=== PATIENT | male | born 1955 | race Caucasian/White ===

== ENCOUNTER 2016-08-27 17:31 | Observation (INO) ==
--- NOTE | 2016-08-27 18:08 | Emergency Department Note ---
Disposition Clinical Impression: Unstable angina pectoris Chest pain Qualifiers: Chest pain type: unspecified Qualified Code(s): R07.9 - Chest pain, unspecified Disposition: Still a Patient Condition: Fair Referrals: Feliciano Laguna CNP [Primary Care Provider] - Forms: ED Satisfaction Letter Time of Disposition: 19:10 Chest Pain HPI - General Chief Complaint: ED Chest Pain Stated Complaint: Chest pain Time Seen by Provider: 08/27/16 17:43 Source: patient Limitations: no limitations Vital Signs Reviewed: Yes Nursing Notes Reviewed: Yes - History of Present Illness HPI Narrative: Patient is a 61-year-old male who presents to [facility] ED with a chief complaint of chest pain. States it has been going on intermittently since 4 days ago. States he just usually takes a few nitroglycerin which relieved his chest pain. Then he feels very weak the next day. The chest pain is located centrally, sharp, radiating to the right arm and left jaw. Patient initially presented to [facility] who sent him here to be evaluated for his chest pain, generalized weakness. They placed 1 inch of Nitropaste, DuoNeb treatment, full dose aspirin, peripheral IV. Patient's last heart catheterization was many years ago. He last had a heart stress test approximately one year ago. Past medical history significant for severe hyperlipidemia with triglycerides over 1000, atrial fibrillation on Coumadin, hypertension, borderline diabetic. Patient states that had he not run out of nitroglycerin, he probably would not have gone to be seen by the doctor. Pt complaint: chest pain Onset (ago): minute(s) Duration: intermittent Onset: during exertion Pain Location: substernal Severity scale (1-10): 0 Quality: sharp Pain Radiation: RUE, jaw/teeth Improves with: nitroglycerin Worsens with: exertion Context: history of DVT/PE Associated symptoms: Denies: nausea, vomiting, diaphoresis, dyspnea, fever, cough Treatments prior to arrival chest pain: aspirin, nitroglycerin, oxygen - Related Data Allergies Allergy/AdvReac Type Severity Reaction Status Date / Time No Known Allergies Allergy Unverified 07/23/16 00:24 All systems ED: reviewed and negative except as stated. Chest Pain PMH - Past Medical History Medical history: Reports: atrial fibrillation, COPD, diabetes, hyperlipidemia, hypertension - Social History Smoking Status: Former smoker Alcohol use: Reports: none Drug use: Reports: none Physical Exam - General Limitations: no limitations General appearance: alert, in no apparent distress - Head Head exam: atraumatic, normocephalic, normal inspection - Eye Eye exam: Present: normal appearance, PERRL, EOMI - ENT ENT exam: normal exam, normal oropharynx, mucous membranes moist - Neck Neck exam: Present: normal inspection, full ROM, trachea midline - Chest Chest inspection: Present: normal inspection, symmetric chest wall rise - Respiratory Respiratory exam: Present: normal lung sounds bilaterally - Cardiovascular Cardiovascular exam: Present: regular rate, normal rhythm, normal heart sounds - Abdominal Exam Abdominal exam: Present: soft, Non-Tender. Absent: tenderness, distention, guarding, rebound, rigidity - Extremities Exam Extremities exam: Present: normal inspection, full ROM. Absent: tenderness, pedal edema - Back Exam Back exam: Present: normal inspection, full ROM. Absent: tenderness - Neurological Exam Neurological exam: Present: alert, oriented X3 - Psychiatric Psychiatric exam: Present: normal affect, normal mood - Skin Skin exam: Present: warm, dry, intact, normal color Course Course Narrative: Patient seen and examined. Chest pain with multiple risk factors. Cardiopulmonary workup initiated. Will likely be admitting to the hospitalist. Patient will likely need a catheterization. - Reevaluation(s) Reevaluation #1: Still awaiting a troponin. Patient signed out to oncoming resident Dr. Elkins. Please see her note for further documentation. Patient will need admission for cardiac workup. Time: 19:10 Vital Signs Temperature 97.7 F 08/27/16 17:32 Pulse Rate 72 08/27/16 17:32 Respiratory Rate 18 08/27/16 17:32 Blood Pressure 126/66 08/27/16 17:32 O2 Sat by Pulse Oximetry 94 L 08/27/16 17:32 Temperature 97.7 F 08/27/16 17:32 Pulse Rate 69 08/27/16 18:34 Respiratory Rate 18 08/27/16 18:34 Blood Pressure 126/71 08/27/16 18:34 O2 Sat by Pulse Oximetry 97 08/27/16 18:34 Oxygen Delivery Oxygen Delivery Nasal Cannula Chest Pain - Medical Records Medical records reviewed: Yes I reviewed the patient's medical records. - Lab Data Lab results reviewed: Yes I reviewed the patient's lab results. Result diagrams: 08/27/16 18:37 08/27/16 18:37 Lab Results 08/27/16 08/27/16 08/27/16 Range/Units 18:37 18:37 18:37 WBC 4.1 L (4.3-11.1) K/mcL RBC 3.49 L (4.19-5.50) M/mcL Hgb 10.5 L (12.9-16.9) g/dL Hct 31.6 L (37.5-50.1) % MCV 90.5 (83.0-100.0) fL MCH 30.1 (28.0-33.3) pg MCHC 33.2 (31.6-35.5) g/dL RDW 13.3 (11.5-14.5) % Plt Count 199 (140-400) K/mcL MPV 9.2 L (9.4-12.4) fL Immature Gran % 3.9 (0-4) % Seg Neutrophils % 59.5 % Lymphocytes % 20.0 % Monocytes % 14.6 % Eosinophils % 1.5 % Basophils % 0.5 % Neutrophils # 2.5 (1.6-8.9) K/mcL Lymphocytes # 0.8 (0.6-4.6) K/mcL Monocytes # 0.6 (0.0-1.3) K/mcL Eosinophils # 0.1 (0.0-0.6) K/mcL Basophils # 0.0 (0.0-0.2) K/mcL PT 29.9 H (9.4-12.1) Seconds INR 2.7 APTT 43.3 H (26.0-36.0) Seconds Sodium 138 (136-145) mEq/L Potassium 3.7 (3.5-4.5) mEq/L Chloride 100 (98-109) mEq/L Carbon Dioxide 28 (19-29) mEq/L BUN 14 (8-26) mg/dL Creatinine 1.23 (0.72-1.25) mg/dL Est GFR ( Amer) > 60 (> 60) Est GFR (Non-Af Amer) 60 (> 60) BUN/Creatinine Ratio 11 (6-26) Glucose 248 H (70-99) mg/dL Calculated Osmolality 295 (280-300) Calcium 8.8 (8.6-10.8) mg/dL - Radiology Data Radiology results reviewed: Yes I reviewed the patient's radiology results. - EKG Data EKG attestation: Yes I reviewed and interpreted this EKG. EKG results narrative: EKG done at 1735 shows an electronic ventricular pacemaker paced rhythm with a rate of [address] elevation or depression. Left axis deviation. Findings unchanged from prior EKG done 04/27/2012 Heart Score - Score History: Highly Suspicious EKG: Non Specific repolarisation Disturbance Age: 45-65 Risk Factors: Equal/Greater than 3 risk factor or history of atherosclerotic disease
--- NOTE | 2016-08-27 18:09 | Emergency Department Note ---
Disposition Clinical Impression: Chest pain, Unstable angina pectoris Disposition: Admitted As Inpatient Condition: Good General Adult HPI - General Chief complaint: ED Chest Pain Stated complaint: Chest pain Time Seen by Provider: 08/27/16 17:43 Source: patient Limitations: no limitations - History of Present Illness Pain Scale: 0 - Related Data Home Medications Medication Instructions Recorded Confirmed Albuterol Sulfate [Ventolin Hfa] 2 puff IH Q4H PRN 08/27/16 08/27/16 Diazepam [Valium] 10 mg PO TID PRN 08/27/16 08/27/16 Divalproex (12 HR) [Depakote (12 1,000 mg PO BID 08/27/16 08/27/16 HR)] Fenofibrate 160 mg PO DAILY 08/27/16 08/27/16 Lisinopril [Zestril] 20 mg PO DAILY 08/27/16 08/27/16 Metoprolol Tartrate 50 mg PO BID 08/27/16 08/27/16 Naltrexone HCl [Revia] 50 mg PO HS 08/27/16 08/27/16 Quetiapine Fumarate 50 mg PO BID 08/27/16 08/28/16 Rosuvastatin Calcium 10 mg PO DAILY 08/27/16 08/27/16 Tamsulosin [Flomax] 0.4 mg PO DAILY 08/27/16 08/27/16 Warfarin Sodium 2.5 - 5 mg PO AD 08/27/16 08/27/16 Quetiapine Fumarate [Seroquel] 800 mg PO HS 08/28/16 08/28/16 Previous Rx's Medication Instructions Recorded Aspirin Enteric Coated [Aspirin EC] 81 mg PO DAILY #30 tablet. 08/29/16 Cefdinir [Omnicef] 300 mg PO BID #24 capsule 08/29/16 Doxycycline Hyclate 100 mg PO BID #24 tablet 08/29/16 Isosorbide MONOnitrate (24 HR) 30 mg PO DAILY #30 tab.er.24h 08/29/16 [Imdur] PredniSONE 10 mg PO DAILY 8 Days 08/29/16 Allergies Allergy/AdvReac Type Severity Reaction Status Date / Time No Known Allergies Allergy Verified 08/27/16 20:43 Past Medical History - Past Medical History Medical history: Reports: atrial fibrillation, COPD, diabetes, hyperlipidemia, hypertension - Social History Smoking Status: Former smoker Alcohol use: Reports: none Drug use: Reports: none Physical Exam - General Limitations: no limitations General appearance: alert, in no apparent distress Course - Reevaluation(s) Reevaluation #1: I saw the patient with the resident, Dr. Liu. Patient presents with a complaint of chest pain. He has been having episodes over the past 2-3 months. He describes central chest discomfort that radiates up into the jaws bilaterally and also feels it in the arms and hands bilaterally. It is associated with shortness of breath and diaphoresis. He takes nitroglycerin to make it go away. He does not note any exacerbating factors but definitely feels that nitroglycerin makes it get better. According to family he is out for at least a day after having chest pain episodes. That story is very concerning to me for cardiac ischemia. He has a tremendous number of risk factors. I think you need to be admitted because I think he needs a heart catheterization. We will get the labs back and make that happen. He is pain- free at this time. Time: 18:08 Vital Signs Temperature 97.7 F 08/27/16 17:32 Pulse Rate 72 08/27/16 17:32 Respiratory Rate 18 08/27/16 17:32 Blood Pressure 126/66 08/27/16 17:32 O2 Sat by Pulse Oximetry 94 L 08/27/16 17:32 Temperature 98.5 F 08/29/16 11:21 Pulse Rate 72 08/29/16 11:21 Respiratory Rate 16 08/29/16 13:30 Blood Pressure 158/66 08/29/16 12:07 O2 Sat by Pulse Oximetry 95 08/29/16 13:30 Oxygen Delivery Oxygen Delivery Nasal Cannula Medical Decision Making - Lab Data Result diagrams: 08/29/16 08:10 08/28/16 00:51 Lab Results 08/27/16 08/27/16 08/27/16 Range/Units 18:37 18:37 18:37 WBC 4.1 L (4.3-11.1) K/mcL RBC 3.49 L (4.19-5.50) M/mcL Hgb 10.5 L (12.9-16.9) g/dL Hct 31.6 L (37.5-50.1) % MCV 90.5 (83.0-100.0) fL MCH 30.1 (28.0-33.3) pg MCHC 33.2 (31.6-35.5) g/dL RDW 13.3 (11.5-14.5) % Plt Count 199 (140-400) K/mcL MPV 9.2 L (9.4-12.4) fL Immature Gran % 3.9 (0-4) % Seg Neutrophils % 59.5 % Lymphocytes % 20.0 % Monocytes % 14.6 % Eosinophils % 1.5 % Basophils % 0.5 % Neutrophils # 2.5 (1.6-8.9) K/mcL Lymphocytes # 0.8 (0.6-4.6) K/mcL Monocytes # 0.6 (0.0-1.3) K/mcL Eosinophils # 0.1 (0.0-0.6) K/mcL Basophils # 0.0 (0.0-0.2) K/mcL PT 29.9 H (9.4-12.1) Seconds INR 2.7 APTT 43.3 H (26.0-36.0) Seconds Sodium 138 (136-145) mEq/L Potassium 3.7 (3.5-4.5) mEq/L Chloride 100 (98-109) mEq/L Carbon Dioxide 28 (19-29) mEq/L BUN 14 (8-26) mg/dL Creatinine 1.23 (0.72-1.25) mg/dL Est GFR ( Amer) > 60 (> 60) Est GFR (Non-Af Amer) 60 (> 60) BUN/Creatinine Ratio 11 (6-26) Glucose 248 H (70-99) mg/dL Calculated Osmolality 295 (280-300) Calcium 8.8 (8.6-10.8) mg/dL Troponin I (0-0.03) ng/mL 08/27/16 Range/Units 18:37 WBC (4.3-11.1) K/mcL RBC (4.19-5.50) M/mcL Hgb (12.9-16.9) g/dL Hct (37.5-50.1) % MCV (83.0-100.0) fL MCH (28.0-33.3) pg MCHC (31.6-35.5) g/dL RDW (11.5-14.5) % Plt Count (140-400) K/mcL MPV (9.4-12.4) fL Immature Gran % (0-4) % Seg Neutrophils % % Lymphocytes % % Monocytes % % Eosinophils % % Basophils % % Neutrophils # (1.6-8.9) K/mcL Lymphocytes # (0.6-4.6) K/mcL Monocytes # (0.0-1.3) K/mcL Eosinophils # (0.0-0.6) K/mcL Basophils # (0.0-0.2) K/mcL PT (9.4-12.1) Seconds INR APTT (26.0-36.0) Seconds Sodium (136-145) mEq/L Potassium (3.5-4.5) mEq/L Chloride (98-109) mEq/L Carbon Dioxide (19-29) mEq/L BUN (8-26) mg/dL Creatinine (0.72-1.25) mg/dL Est GFR ( Amer) (> 60) Est GFR (Non-Af Amer) (> 60) BUN/Creatinine Ratio (6-26) Glucose (70-99) mg/dL Calculated Osmolality (280-300) Calcium (8.6-10.8) mg/dL Troponin I 0.02 (0-0.03) ng/mL Attestation Statement - Attestation Attestation: I, Dr. Jiang, examined this patient [id number] and my medical decision- making was reviewed with Dr. Liu, Resident Physician. I agree with the documented findings, disposition and treatment plan as described except to the extent set forth below. Please see my progress notes for details.
[2016-08-27 18:43] LABS: Basophils % 0.5 %; Eosinophils # 0.1 K/mcL (0.0-0.6); Eosinophils % 1.5 %; Hematocrit 31.6 % (37.5-50.1); Hemoglobin 10.5 g/dL (12.9-16.9); Immature Granulocytes % 3.9 % (0-4); Lymphocytes # 0.8 K/mcL (0.6-4.6); Mean Corpuscular HGB Conc 33.2 g/dL (31.6-35.5); Mean Corpuscular Hemoglobin 30.1 pg (28.0-33.3); Mean Corpuscular Volume 90.5 fL (83.0-100.0); Mean Platelet Volume 9.2 fL (9.4-12.4); Monocytes # 0.6 K/mcL (0.0-1.3); Monocytes % 14.6 %; Neutrophils # 2.5 K/mcL (1.6-8.9); Platelet Count 199 K/mcL (140-400); Red Blood Count 3.49 M/mcL (4.19-5.50); Red Cell Distribution Width 13.3 % (11.5-14.5); Segmented Neutrophils % 59.5 %
[2016-08-27 18:51] LABS: INR 2.7; Prothrombin Time 29.9 Seconds (9.4-12.1)
[2016-08-27 18:53] LABS: Activated Partial Thrombo Time 43.3 Seconds (26.0-36.0)
[2016-08-27 18:55] LABS: BUN/Creatinine Ratio 11 (6-26); Blood Urea Nitrogen 14 mg/dL (8-26); Calcium 8.8 mg/dL (8.6-10.8); Carbon Dioxide 28 mEq/L (19-29); Chloride 100 mEq/L (98-109); Glucose 248 mg/dL (70-99); Osmolality,Calculated 295 (280-300); Potassium 3.7 mEq/L (3.5-4.5); Sodium 138 mEq/L (136-145); eGFR For African Americans > 60 (> 60); eGFR For Non-African Americans 60 (> 60)
[2016-08-27] MEDS ORDERED: Insulin Regular, Human 100 UNIT/ML SQ ONE (20:01)
--- NOTE | 2016-08-27 20:05 | Emergency Department Note ---
Disposition Clinical Impression: Unstable angina pectoris Chest pain Qualifiers: Chest pain type: unspecified Qualified Code(s): R07.9 - Chest pain, unspecified Disposition: Admitted As Inpatient Condition: Fair Referrals: Feliciano Laguna [employer] [Primary Care Provider] - Forms: ED Satisfaction Letter Time of Disposition: 19:45 Chest Pain HPI - General Chief Complaint: ED Chest Pain Stated Complaint: Chest pain Time Seen by Provider: 08/27/16 17:43 Source: patient Limitations: no limitations Vital Signs Reviewed: Yes Nursing Notes Reviewed: Yes - History of Present Illness Pain Location: substernal Severity scale (1-10): 0 Quality: sharp Improves with: nitroglycerin Worsens with: exertion Context: history of DVT/PE Associated symptoms: Denies: nausea, vomiting, diaphoresis, dyspnea, fever, cough - Related Data Allergies Allergy/AdvReac Type Severity Reaction Status Date / Time No Known Allergies Allergy Unverified 07/23/16 00:24 Chest Pain PMH - Past Medical History Medical history: Reports: atrial fibrillation, COPD, diabetes, hyperlipidemia, hypertension - Social History Smoking Status: Former smoker Alcohol use: Reports: none Drug use: Reports: none Physical Exam - General Limitations: no limitations General appearance: alert, in no apparent distress Course Course Narrative: This patient was signed out at shift change from Dr. Liu and Dr. Jiang. Please refer to their notes for complete details of the history and physical examination. At shift change the patient is just awaiting results of troponin level and consultation for admission. 61-year-old male presented with history of increasing chest pains relieved with nitroglycerin. Chest pain is getting more frequent and more severe in intensity. Troponin came back normal at 0.02. Test results and plan discussed with patient and son. I discussed with the hospitalist, Dr. Livingston, and she accepted admission of the patient. - Consultations Consultation #1: Discussed with the hospitalist, Dr. Livingston, and she accepted patient for admission. She requested that I give patient some insulin for his elevated blood glucose. He is given 4 units of regular insulin subcutaneous. Time: 19:45 Vital Signs Temperature 97.7 F 08/27/16 17:32 Pulse Rate 72 08/27/16 17:32 Respiratory Rate 18 08/27/16 17:32 Blood Pressure 126/66 08/27/16 17:32 O2 Sat by Pulse Oximetry 94 L 08/27/16 17:32 Temperature 97.7 F 08/27/16 17:32 Pulse Rate 70 08/27/16 19:14 Respiratory Rate 18 08/27/16 19:14 Blood Pressure 129/73 08/27/16 19:14 O2 Sat by Pulse Oximetry 96 08/27/16 19:14 Oxygen Delivery Oxygen Delivery Nasal Cannula Chest Pain - Lab Data Result diagrams: 08/27/16 18:37 08/27/16 18:37 Lab Results 08/27/16 08/27/16 08/27/16 Range/Units 18:37 18:37 18:37 WBC 4.1 L (4.3-11.1) K/mcL RBC 3.49 L (4.19-5.50) M/mcL Hgb 10.5 L (12.9-16.9) g/dL Hct 31.6 L (37.5-50.1) % MCV 90.5 (83.0-100.0) fL MCH 30.1 (28.0-33.3) pg MCHC 33.2 (31.6-35.5) g/dL RDW 13.3 (11.5-14.5) % Plt Count 199 (140-400) K/mcL MPV 9.2 L (9.4-12.4) fL Immature Gran % 3.9 (0-4) % Seg Neutrophils % 59.5 % Lymphocytes % 20.0 % Monocytes % 14.6 % Eosinophils % 1.5 % Basophils % 0.5 % Neutrophils # 2.5 (1.6-8.9) K/mcL Lymphocytes # 0.8 (0.6-4.6) K/mcL Monocytes # 0.6 (0.0-1.3) K/mcL Eosinophils # 0.1 (0.0-0.6) K/mcL Basophils # 0.0 (0.0-0.2) K/mcL PT 29.9 H (9.4-12.1) Seconds INR 2.7 APTT 43.3 H (26.0-36.0) Seconds Sodium 138 (136-145) mEq/L Potassium 3.7 (3.5-4.5) mEq/L Chloride 100 (98-109) mEq/L Carbon Dioxide 28 (19-29) mEq/L BUN 14 (8-26) mg/dL Creatinine 1.23 (0.72-1.25) mg/dL Est GFR ( Amer) > 60 (> 60) Est GFR (Non-Af Amer) 60 (> 60) BUN/Creatinine Ratio 11 (6-26) Glucose 248 H (70-99) mg/dL Calculated Osmolality 295 (280-300) Calcium 8.8 (8.6-10.8) mg/dL Troponin I (0-0.03) ng/mL 08/27/16 Range/Units 18:37 WBC (4.3-11.1) K/mcL RBC (4.19-5.50) M/mcL Hgb (12.9-16.9) g/dL Hct (37.5-50.1) % MCV (83.0-100.0) fL MCH (28.0-33.3) pg MCHC (31.6-35.5) g/dL RDW (11.5-14.5) % Plt Count (140-400) K/mcL MPV (9.4-12.4) fL Immature Gran % (0-4) % Seg Neutrophils % % Lymphocytes % % Monocytes % % Eosinophils % % Basophils % % Neutrophils # (1.6-8.9) K/mcL Lymphocytes # (0.6-4.6) K/mcL Monocytes # (0.0-1.3) K/mcL Eosinophils # (0.0-0.6) K/mcL Basophils # (0.0-0.2) K/mcL PT (9.4-12.1) Seconds INR APTT (26.0-36.0) Seconds Sodium (136-145) mEq/L Potassium (3.5-4.5) mEq/L Chloride (98-109) mEq/L Carbon Dioxide (19-29) mEq/L BUN (8-26) mg/dL Creatinine (0.72-1.25) mg/dL Est GFR ( Amer) (> 60) Est GFR (Non-Af Amer) (> 60) BUN/Creatinine Ratio (6-26) Glucose (70-99) mg/dL Calculated Osmolality (280-300) Calcium (8.6-10.8) mg/dL Troponin I 0.02 (0-0.03) ng/mL
[2016-08-27] MEDS ORDERED: Naloxone 0.4 MG/ML INJ IVP PRN (20:53)
[2016-08-27] MEDS ORDERED: Ondansetron ODT 4 MG TAB.RAPDIS SL PRN (20:56)
[2016-08-27] MEDS ORDERED: *HR* Morphine 2 MG/ML SYRINGE IVP PRN (20:56)
--- NOTE | 2016-08-27 20:59 | Internal Med History&Physical ---
<Chan Wood - Last Filed: 08/27/16 21:40> Date of Encounter: 08/27/16 Time of Encounter: 20:25 Assessment and Plan (1) Chest pain Current visit: Yes Status: Acute Worsening atypical chest pain; midsternal, no precipitating factors, relieved with nitro. Concern for ACS vs CHF exacerbation vs COPD exacerbation. CXR showed asymmetric pulmonary edema/pneumonia. No acute EKG changes. Troponin neg x 1, will trend. Continue prn nitro. Continue statin, BB. Given ASA. Echo pending. Requested outside cardiology records. Consider consult to cardiology pending results. Qualifiers: Chest pain type: unspecified Qualified Code(s): R07.9 - Chest pain, unspecified (2) CHF (congestive heart failure) Current visit: Yes Status: Suspected Concern for CHF vs COPD exacerbation. Appears "puffy" on exam, with taunt skin of abdomen and lower extremities. Dyspneic with rhonchi. Requesting cardiac history from [facility]. Patient states he has taken lasix at times. Notes hospitalization on ventilator approx 2 years ago which he believes was associated with CHF. CXR showed L perihilar disease with asymmetric pulmonary edema. Ordered echo and stress. Give lasix, with regard to blood pressure. Qualifiers: Congestive heart failure type: unspecified congestive heart failure type Congestive heart failure chronicity: acute on chronic Qualified Code(s): I50.9 - Heart failure, unspecified (3) COPD (chronic obstructive pulmonary disease) Current visit: Yes Status: Chronic Concern for COPD exacerbation vs CHF exacerbation with shortness of breath. Continue duonebs Q4H prn. Supplemental oxygen as needed. No antibiotics recommended at this time. Afebrile, no leukocytosis. Qualifiers: COPD type: unspecified COPD Qualified Code(s): J44.9 - Chronic obstructive pulmonary disease, unspecified (4) A-fib Current visit: Yes Status: Chronic Ventricular paced in the 70s. Continue BB. Continue warfarin. Qualifiers: Atrial fibrillation type: chronic Qualified Code(s): I48.2 - Chronic atrial fibrillation (5) Diabetes mellitus Current visit: Yes Status: Chronic Patient received 4 units insulin in ED for BG 248. Currently NPO for possible cardiac procedures/testing. Check glucose Q6, with medium intensity SSI. Qualifiers: Diabetes mellitus type: type 2 Diabetes mellitus complication status: without complication Diabetes mellitus roasterman insulin use: without chcf use Qualified Code(s): E11.9 - Type 2 diabetes mellitus without complications (6) History of cardiac pacemaker Current visit: Yes Status: Chronic Consulta SURGICAL SCHEDULER pacemaker. (7) Mood disorder Current visit: Yes Status: Chronic History of mood disorder. Continue valium, seroquel, depakote. Checking valproic acid level. (8) DVT prophylaxis Current visit: Yes Status: Acute Continue home warfarin. Internal Medicine - H&P: HPI Chief complaint: chest pain Admitted From: Emergency Dept Plans for Post Hospital Care: Home History of present illness: Mr. Magaña is a 61 year old male that presented to the ED for worsening Chest pain and shortness of breath today. Patient states episodes of chest pain for the past year that originally occurred approx once every other month and have gotten more frequent, more painful, and requiring more nitroglycerin since. Currently occurring approx 2-3x per month and requiring 3-5 nitros before chest pain fully relieved. Patient states his pain today woke him at approx 7am, described as a sharp stabbing pain in the center of his chest with radiation to his R jaw and some tingling in his R hand and foot. Patient states he only had 3 nitros left at home, he used these with temporary improvement and came to the ED when he didn't have any more nitros to take. Patient also notes increased cough and chest congestion for the past 2 days. He also notes falling on Wednesday after having chest pain earlier and taking his night time meds. Patient denies loss of consciousness, denies any nasuea, vomiting, abdominal pain, diarrhea, constipation, dysuria, blood in urine or stool. Notes some mild swelling at times, not currently. Pertinent PMHx of HLD, HTN, COPD, a fib, DM, pulm HTN. Pacer replaced 09/07/[address] Andrew Arriaza (patient has info card on pacer). Patient had seen Dr. Cochran at [facility], new solar energy specialist Dr. Arriaza. Will request records. Past Med Surg Social Fam HX - Past Medical History Medical history: atrial fibrillation, COPD, diabetes, hyperlipidemia, hypertension - Past Surgical History Surgical History: other (pacemaker) - Social History Smoking Status: Former smoker Alcohol use: none Drug use: none - Family History Brother Living Status: Hx Family Cardiac Disorders: Yes (CO) Father Living Status: Hx Family Cancer: Yes (bladder) Mother Living Status: Hx Family Cardiac Disorders: Yes (CO) Hx Family Endocrine Disorder: Yes (DM) Internal Medicine - H&P: Meds Albuterol Sulfate [Ventolin Hfa] 2 puff IH Q4H PRN 08/27/16 [History] Diazepam [Valium] 10 mg PO TID PRN 08/27/16 [History] Divalproex (12 HR) [Depakote (12 HR)] 1,000 mg PO BID 08/27/16 [History] Fenofibrate [Fenofibrate] 160 mg PO DAILY 08/27/16 [History] Lisinopril [Zestril] 20 mg PO DAILY 08/27/16 [History] Metoprolol Tartrate [Metoprolol Tartrate] 50 mg PO BID 08/27/16 [History] Naltrexone HCl [Revia] 50 mg PO HS 08/27/16 [History] Quetiapine Fumarate [Quetiapine Fumarate] 450 mg PO BID 08/27/16 [History] Rosuvastatin Calcium [Rosuvastatin Calcium] 10 mg PO DAILY 08/27/16 [History] Tamsulosin [Flomax] 0.4 mg PO DAILY 08/27/16 [History] Warfarin Sodium [Warfarin Sodium] 2.5 - 5 mg PO AD 08/27/16 [History] Allergies No Known Allergies Allergy (Verified 08/27/16 20:43) All Systems PM: A 10-system review of systems was performed and is negative for pertinent findings except as documented above in the HPI. - Constitutional Constitutional: no chills, no fever(s), no night sweats - EENT Eyes: no change in vision, no pain, no photophobia Ears: no tinnitus Nose, mouth and throat: nasal congestion, no dysphagia - Cardiovascular Cardiovascular ROS IM: chest pain, dyspnea, lightheadedness, no syncope - Respiratory Respiratory: cough, dyspnea, chest congestion - Gastrointestinal Gastrointestinal: no abdominal pain, no diarrhea, no hematemesis, no hematochezia, no melena, no nausea, no vomiting - Genitourinary Genitourinary ROS male: no dysuria, no hematuria - Musculoskeletal Musculoskeletal ROS IM: no tingling - Integumentary Integumentary IM: no rash, no unusual bruising - Neurological Neurological ROS: no confusion, no focal weakness - Hematologic/Lymphatic Hematologic/Lymphatic: no easy bruising - Constitutional Vitals: Temp Pulse Resp BP Pulse Ox 97.7 F 70 20 149/80 96 08/27/16 17:32 08/27/16 19:14 08/27/16 20:41 08/27/16 20:41 08/27/16 19:14 General appearance: Present: cooperative, A&O X 3, no acute distress, answers questions appropriately - Head Head exam: Present: atraumatic, normocephalic - Eye Eye exam: Present: EOMI, PERRL, conjuntiva pink, sclera anicteric Pupils: Present: PERRL - Neck Neck exam general surgery: Present: full ROM, supple, trachea midline - Respiratory Respiratory exam: Present: decreased breath sounds, rhonchi. Absent: accessory muscle use, chest wall tenderness, rales, respiratory distress - Cardiovascular Cardiovascular exam: Present: RRR, +S1, +S2. Absent: diastolic murmur, gallop, rubs, systolic murmur - GI/Abdominal GI/Abdominal exam: Present: distended, normal bowel sounds, soft, no peritoneal signs. Absent: tenderness - Extremities Exam Extremities exam: Present: warm. Absent: calf tenderness, cyanotic, pedal edema (no pitting edema, but skin taunt.) - Neurological Exam Neurological exam: Present: alert, oriented X3, no focal deficits. Absent: facial droop, speech deficit - Skin Skin exam: Present: dry, intact Internal Med - H&P Results - Labs CBC & Chem 7: 08/27/16 18:37 08/27/16 18:37 <Kenzie Livingston - Last Filed: 08/27/16 23:01> Date of Encounter: 08/27/16 Internal Medicine - H&P: HPI History of present illness: Mr. Magaña is a 61 year old male All Systems PM: A 10-system review of systems was performed and is negative for pertinent findings except as documented above in the HPI. - Constitutional Vitals: Temp Pulse Resp BP Pulse Ox 98.0 F 76 18 163/83 94 L 08/27/16 21:14 08/27/16 21:14 08/27/16 22:44 08/27/16 21:14 08/27/16 22:44 Internal Med - H&P Results - Labs CBC & Chem 7: 08/27/16 18:37 08/27/16 18:37 - Attending Attestation Patient was independently seen and examined at bedside. Case was discussed with the resident physician and I agree with her listed findins, assessment and plan. Follow up med records from [facility] follow up 2D Echo Closely monitor respiratory status will give one dose of Lasix 20mg IV and repeat CXR in am, no clinical signs of infection noted at this time, will monitor off abx. f/u serial tni stress test in am consider cardiac eval, if above test finding are abnormal continue all home medications Hyperglycemia noted but no documented history of DM, f/u HbA1C continue to monitor fingerstick and blood glucose. Started sliding scale correctional insulin algorithm as needed continue duoneb prn continue O2 supplementation as needed. continue anticoagulation with coumadin for Afib, closely monitor INR (goal INR: 2-3)
[2016-08-27] MEDS ORDERED: *HR* Warfarin 5 MG TABLET PO SCH ×2 (21:15→23:45)
[2016-08-27] MEDS ORDERED: Dextrose Gel 15 GM PO PRN ×2 (21:30)
[2016-08-27] MEDS ORDERED: *HR* Dextrose 50 % in Water (Syg) 50 ML SYRINGE IVP PRN (21:30)
[2016-08-27] MEDS ORDERED: D5% in Water 1,000 ML IV PRN (21:30)
[2016-08-27] MEDS: Ipratropium/Albuterol Neb 3 ML IH PRN (22:42)
[2016-08-27] MEDS ORDERED: Furosemide 20 MG/2 ML VIAL IVP ONE (23:00)
[2016-08-27] MEDS: Divalproex (12 HR) 500 MG TABLET PO SCH (23:27)
[2016-08-27] MEDS: Insulin LISPRO 300 UNITS/3 ML VIAL SQ SCH (23:46)
[2016-08-28] MEDS: diazePAM 10 MG TABLET PO PRN ×3 (00:18→20:22)
[2016-08-28 01:00] LABS: Basophils % 1.1 %; Eosinophils # 0.1 K/mcL (0.0-0.6); Hematocrit 32.3 % (37.5-50.1); Hemoglobin 10.6 g/dL (12.9-16.9); Lymphocytes # 0.9 K/mcL (0.6-4.6); Lymphocytes % 26.1 %; Mean Corpuscular HGB Conc 32.8 g/dL (31.6-35.5); Mean Corpuscular Hemoglobin 29.6 pg (28.0-33.3); Mean Corpuscular Volume 90.2 fL (83.0-100.0); Mean Platelet Volume 9.3 fL (9.4-12.4); Monocytes # 0.5 K/mcL (0.0-1.3); Monocytes % 13.7 %; Neutrophils # 1.9 K/mcL (1.6-8.9); Platelet Count 204 K/mcL (140-400); Red Blood Count 3.58 M/mcL (4.19-5.50); Red Cell Distribution Width 13.1 % (11.5-14.5); Segmented Neutrophils % 52.1 %
[2016-08-28 01:05] LABS: INR 2.6; Prothrombin Time 28.7 Seconds (9.4-12.1)
[2016-08-28 01:07] LABS: Activated Partial Thrombo Time 44.3 Seconds (26.0-36.0)
[2016-08-28 01:15] LABS: BUN/Creatinine Ratio 13 (6-26); Blood Urea Nitrogen 15 mg/dL (8-26); Calcium 8.9 mg/dL (8.6-10.8); Carbon Dioxide 24 mEq/L (19-29); Chloride 102 mEq/L (98-109); Chol/HDL Ratio 10.5 (0-4.9); Cholesterol 220 mg/dL (< 200); Glucose 213 mg/dL (70-99); HDL Cholesterol 21 mg/dL (40-59); Magnesium 2.2 mg/dL (1.6-2.6); Osmolality,Calculated 295 (280-300); Phosphorous 3.9 mg/dL (2.3-4.7); Potassium 3.7 mEq/L (3.5-4.5); Sodium 139 mEq/L (136-145); Triglycerides 500 mg/dL (< 150); eGFR For African Americans > 60 (> 60); eGFR For Non-African Americans > 60 (> 60)
[2016-08-28 01:22] LABS: Valproate 55.67 mcg/mL (50-100)
[2016-08-28 01:24] LABS: Hemoglobin A1C 7.4 %
[2016-08-28] MEDS: Insulin LISPRO 300 UNITS/3 ML VIAL SQ SCH ×3 (06:08→17:11)
[2016-08-28] MEDS: Ipratropium/Albuterol Neb 3 ML IH PRN (06:30)
[2016-08-28] MEDS: Acetaminophen 325 MG TABLET PO PRN ×2 (06:49→20:22)
[2016-08-28] MEDS ORDERED: Regadenoson 0.4 MG/5 ML SYRINGE IVP ONE (07:25)
[2016-08-28] MEDS ORDERED: Divalproex (12 HR) 500 MG TABLET PO SCH (09:00)
--- NOTE | 2016-08-28 09:58 | Nuclear Medicine Stress Report ---
Regadenoson Nuclear Stress Name: LEANDRA ODOM Date of Study: 08/28/2016 Date: 1955 Ht: 70.0 in Medical Record#: [id number] Age: 61 Wt: 242.0 lb Gender: Male Order #: [id number] Location: [facility] Room: [facility] [place] Supervising Provider: Valentino Edmond CNP Reading Physician: Jeremy Corral DO, FACC, FASE, FASNC Ordering Physician: Natalee Buenrostro CNP Primary Care Physician: Feliciano Laguna CNP Stress Technologist: Jeannie Vergara, VALUATION MANAGER, CCT, CPFT Gamb Cutter: Jim Ramirez Indications: Chest pain Impression: Pharmacologic stress ECG is non-diagnostic for ischemia due to baseline paced rhythm. Gated EF = 73%. Perfusion imaging was negative for ischemia or infarct. History: Hypertension Diabetes Hypercholesteremia Stress Test Summary: Stress Test Type: Pharmacologic Regadenoson 0.4mg/5ml given IV Baseline Information: Initial Heart Rate: 76 Blood Pressure: 128/80 Stress Information: Test Terminated Due to (primary): As per protocol Maximum Blood Pressure: 122/70 Maximum Heart Rate: 70 Percent Maximum Heart Rate Achieved: 44 Double Product: 8540 METS Reached: 1 Symptoms: Chest pain Nuclear Summary: SPECT myocardial perfusion imaging using Tc99m Sestamibi given intravenously was performed at rest and following cardiac stress testing. The resting images were obtained following initial dose of 11.8 mCi. Following stress an additional dose of 35.0 mCi was given at peak exercise or 30 seconds post regadenoson infusion. Medication Given: Time Medication Dose Units Route Findings: Stress Note * Ventricular paced rhythm throughout the study. * No baseline or stress arrhythmias were noted. * Pharmacologic stress ECG is non-diagnostic for ischemia due to baseline paced rhythm. * Patient had no chest pain during stress. * Normal hemodynamic responses to pharmacologic stress. Study Quality * Study quality is good. Gated EF % * Gated EF = 73%. Left Ventricle * The left ventricle is not dilated. LVEDV = 122 mL. NORMALS * Normal wall motion. * Normal segmental perfusion in stress. * Normal segmental perfusion in rest. TID * No evidence of transient ischemic dilatation. TID ratio = 1.07. Lung Uptake * There is no evidence of increase lung uptake. Updated by Jeremy Corral DO, FACC, FASE, FASGILMA on 08/28/2016 9:51:06 AM electronically signed on 08/28/2016 9:53:56 AM with status of Final
[2016-08-28] MEDS ORDERED: *HR* Dextrose 50 % in Water (Syg) 50 ML SYRINGE IVP PRN (10:38)
[2016-08-28] MEDS ORDERED: D5% in Water 1,000 ML IV PRN (10:38)
[2016-08-28] MEDS ORDERED: Dextrose Gel 15 GM PO PRN ×2 (10:38)
[2016-08-28] MEDS: Divalproex (12 HR) 500 MG TABLET PO SCH ×2 (10:56→20:13)
[2016-08-28] MEDS: Pantoprazole 40 MG VIAL IVP SCH (10:56)
[2016-08-28] MEDS: Aspirin 81 MG TAB.CHEW PO SCH (10:56)
[2016-08-28] MEDS: Fenofibrate 54 MG TABLET PO SCH (10:56)
[2016-08-28] MEDS: Lisinopril 20 MG TABLET PO SCH (10:56)
--- NOTE | 2016-08-28 12:17 | ECHO - Doppler Report ---
Echocardiogram Name: Bruno Magaña Date of Study: 08/28/2016 Date: 1955 Ht: 70.0 in Medical Record#: [id number] Age: 61 Wt: 241.0 lb Gender: Male BSA: 2.26 Order #: [id number] Location: [facility] Room #: [id number] Reading Physician: Jeremy Corral DO, SOWMYA CHISHOLM FASNC Gate Operator: Carlee Vizcaino RVT Ordering Physician: Chan Wood DO Primary Physician: Feliciano Laguna CNP Indications: worsening chest pain, dyspnea Impressions: LVEF 60-65%. Normal LV chamber size, wall thickness and function. Atypical septal motion consistent with paced rhythm. Indeterminate diastolic function. Normal right ventricular structure and function. No evidence of pulmonary hypertension. A device lead was visualized in the right atrium and right ventricle. No significant valvular dysfunction. Left Ventricular Wall Motion: Rest Echo Findings All wall segments showed normal motion. Findings: Study Quality * Technically adequate exam. ECG Findings * Paced rhythm. Left Ventricle * LVEF 60-65%. * Normal LV chamber size, wall thickness and function. * Atypical septal motion consistent with paced rhythm. * Indeterminate diastolic function. Right Ventricle * Normal right ventricular structure and function. Left Atrium * Moderately dilated left atrium. Right Atrium * Mildly dilated right atrium. Interatrial Septum * No evidence of PFO by color Doppler. Aortic Valve * Trileaflet aortic valve. * Mildly sclerotic aortic valve leaflets. * No aortic regurgitation. * No aortic stenosis. Mitral Valve * Mildly thickened mitral valve leaflets. * Trace mitral regurgitation. * No mitral stenosis. Tricuspid Valve * Normal tricuspid valve structure and function. * Trace tricuspid regurgitation. * No evidence of pulmonary hypertension. Pulmonic Valve * Pulmonic valve is not well visualized. * No pulmonic regurgitation. Aorta * Normally sized aortic root. Pericardium * The pericardium appears normal. IVC * Normal IVC dimensions and inspiratory collapse. Device lead * A device lead was visualized in the right atrium and right ventricle. Pulmonary Artery * Normal visualized portions of the main pulmonary artery. History Hypertension Diabetes Hypercholesteremia Rheumatic Fever Family History of CAD History of CAD/PTCA Congestive Heart Failure Pacer/ICD Implant 08/22/2010 a Previous Echo was performed. Measurements: BP: 119/ 63 2D Normal Values RVIDd: 2.60 cm <2.7 cm IVSd: 1.10 cm 0.6 - 1.0 cm LVIDd: 5.30 cm 3.7 - 5.6 cm LVPWd: 1.00 cm 0.6 - 1.1 cm LVIDs: 3.10 cm 1.5 - 3.6 cm AO: 2.30 cm < 4.0 cm LA: 4.10 cm 2.0 - 4.0cm %FS: 41.50 cm >25 % LA volume: 96 Mitral Valve Peak E:1.23 m/sec Peak A:.53 m/sec E/A Ratio:2.3 Peak E' Lat Vaughn:14.4 cm/s Peak E' Med Vaughn:15.4 cm/s E/E' Lat Ratio:8.5 E/E' Med Ratio:8 Tricuspid Valve TV Regurg Peak Grad: 27.00mmHg TV Regurg Peak Vaughn: 2.62m/sec Updated by Jeremy Corral DO, KATHRINE, SOFIA DENG on 08/28/2016 12:12:20 PM electronically signed on 08/28/2016 12:14:16 PM with status of Final Wall Motion Mckoy: 1=Normal, 2=Hypokinesis, 3=Akinesis, 4=Dyskinesis, 5=Aneurysmal, 6=Hyperkinetic, X=Not Visualized (Blank)=Missing
--- NOTE | 2016-08-28 15:47 | Cardiology Consult Note ---
<Valentino Edmond R - Last Filed: 08/28/16 15:44> Date of Encounter: 08/28/16 Time of Encounter: 15:44 Assessment and Plan (1) Chest pain Current Visit: Yes Status: Acute Chest pain with typical and atypical features. He reports CP over the past year that has been worsening. It is midsternal with radiation to his right jaw and numbness in his fingers. It is not associated with exertion. He reports it is relieved with 3-5 nitros. Troponins have been negative x 4. Pt has been chest pain free since yesterday. Echo shows preserved EF 60-65%, normal RV structure and function, no significant valvular dysfunction. Stress test today nuclear imaging negative for ischemia or infarct. At this time, no compelling indication for any further ischemic evaluation ([facility]) . Pt does have risk factors--obesity, HTN, HLD, DM, prior tobacco abuse. Recommend continuing ASA, Statin, BB. Will add Imdur to see if this improves symptoms. Recommend follow-up with established lip reading teacher at [facility] in 1 week. CXR shows possible left lobe PNA--management per primary team. Anticipate sign off once seen and evaluated by Dr. Parisi. Qualifiers: Chest pain type: unspecified Qualified Code(s): R07.9 - Chest pain, unspecified (2) A-fib Current Visit: Yes Status: Chronic Hx of Ablation. PPM in place. Rate controlled on BB. INR therapeutic on Coumadin , 2.6. Qualifiers: Atrial fibrillation type: chronic Qualified Code(s): I48.2 - Chronic atrial fibrillation (3) History of cardiac pacemaker Current Visit: Yes Status: Chronic Follows with device clinic at [facility]. (4) Hyperlipidemia Current Visit: Yes Status: Acute Triglycerides 500 and total cholesterol 220. Pt showed me prior labs on paper that show triglycerides previously 1070 and total cholesterol 300s. He states he has been changing his diet. Continue statin and fenofibrate. Qualifiers: Hyperlipidemia type: mixed hyperlipidemia Qualified Code(s): E78.2 - Mixed hyperlipidemia Discussion w patient/family: The assessment and plan as outlined above was discussed with the patient and/or family members who expressed understanding and agreement. All questions were answered. Thank you for involving us in the care of your patient. Please call with any questions. I will discuss all the above with Dr. Parisi and make changes as necessary. History of Present Illness Consult date: 08/28/16 Requesting physician: Kenzie Livingston Consult reason: Chest pain Chief complaint: Chest pain History of present illness: Mr. Magaña is a 61 year old male with PMH of HLD, HTN, COPD, A-Fib on Coumadin, DM, hx of ablation and PPM. He presented to the ED for worsening Chest pain and shortness of breath. Patient states he has had episodes of chest pain for the past year that originally occurred approx once every other month and have gotten more frequent, more painful, and requiring more nitroglycerin. He states he was cathed many years ago without intervention. Chest pain now occurring approximately 2-3x per month and requiring 3-5 nitros before chest pain fully relieved. Patient states his pain prior to admission woke him at approx 7am, described as a sharp stabbing pain in the center of his chest with radiation to his R jaw and some tingling in his R hand and foot. Patient states he only had 3 nitros left at home, he used these with temporary improvement and came to the ED when he didn't have any more nitros to take. Patient also notes increased cough and chest congestion for the past 2 days. He also notes falling on Wednesday after having chest pain and nitro use. Patient denies loss of consciousness. He follows with cardiology at [facility]. Troponins have been negative x 4. Echo EF 60-65%, normal RV structure and function, no significant valve dysfunction. Stress test negative for ischemia or infarct. Pt reports he has been chest pain free since yesterday. He has been working on his diet and has lowered his triglycerides from 1070 to 500 and his total cholesterol from 300s to 220. Past Med Surg Social Fam HX - Past Medical History Medical history: atrial fibrillation, COPD, diabetes, hyperlipidemia, hypertension - Past Surgical History Surgical History: other (pacemaker) - Social History Smoking Status: Former smoker Alcohol use: none Drug use: none - Family History Brother Living Status: Hx Family Cardiac Disorders: Yes ([place]) Hx Family Endocrine Disorder: Yes (DM) Father Living Status: Hx Family Cancer: Yes (bladder) Mother Living Status: Hx Family Cardiac Disorders: Yes ([place]) Hx Family Endocrine Disorder: Yes (DM) Medications and Allergies Albuterol Sulfate [Ventolin Hfa] 2 puff IH Q4H PRN 08/27/16 [History] Diazepam [Valium] 10 mg PO TID PRN 08/27/16 [History] Divalproex (12 HR) [Depakote (12 HR)] 1,000 mg PO BID 08/27/16 [History] Fenofibrate [Fenofibrate] 160 mg PO DAILY 08/27/16 [History] Lisinopril [Zestril] 20 mg PO DAILY 08/27/16 [History] Metoprolol Tartrate [Metoprolol Tartrate] 50 mg PO BID 08/27/16 [History] Naltrexone HCl [Revia] 50 mg PO HS 08/27/16 [History] Quetiapine Fumarate [Quetiapine Fumarate] 50 mg PO BID 08/27/16 [History] Rosuvastatin Calcium [Rosuvastatin Calcium] 10 mg PO DAILY 08/27/16 [History] Tamsulosin [Flomax] 0.4 mg PO DAILY 08/27/16 [History] Warfarin Sodium [Warfarin Sodium] 2.5 - 5 mg PO AD 08/27/16 [History] Quetiapine Fumarate [Seroquel] 800 mg PO HS 08/28/16 [History] Allergies No Known Allergies Allergy (Verified 08/27/16 20:43) All Systems Review: A 10-system review of systems was performed and is negative for pertinent findings except as documented above in the HPI. - Cardiovascular Cardiovascular: as per HPI, chest pain at rest, chest pain with exertion, diaphoresis, dyspnea on exertion, radiating jaw, neck or arm pain - Respiratory Respiratory: cough, dyspnea Physical Examination Vital Signs, Last 4 Hours Temp Pulse Resp BP Pulse Ox 08/28/16 15:23 98.0 F 71 14 123/79 95 Vital Signs Temp Pulse Resp BP Pulse Ox 08/28/16 15:23 98.0 F 71 14 123/79 95 08/28/16 10:55 97.4 F L 70 15 150/80 96 08/28/16 06:32 22 90 L 08/28/16 04:09 98.0 F 70 16 119/63 93 L 08/27/16 23:38 97.5 F L 72 16 148/66 96 08/27/16 22:44 18 94 L 08/27/16 21:30 94 L 08/27/16 21:14 98.0 F 76 16 163/83 96 08/27/16 20:41 20 149/80 08/27/16 19:14 70 18 129/73 96 08/27/16 18:34 69 18 126/71 97 08/27/16 18:00 71 18 133/75 97 08/27/16 17:40 97 08/27/16 17:32 97.7 F 72 18 126/66 94 L Intake and Output 08/27/16 08/28/16 08/28/16 23:59 07:59 15:59 Intake Total 240 / 240 240 / 240 Balance 240 / 240 240 / 240 Intake: Oral 240 / 240 240 / 240 Other: Meal Lunch Percent of Meal Consumed 100% Weight 109.724 kg Blood Glucose* 192 168 173 General: Conversant, No Apparent Distress HEENT: Atraumatic, Normocephaly, Mucus Membranes Moist Neck: No JVD, Normal carotid pulses Cardiac: Reg Rate and Rhythm, Normal S1 and S2, No Murmur Lungs: Normal Breath Sounds, No Wheeze, Rales, Rhonchi Neuro: Alert and responsive, No focal deficits noted Abdomen: Soft, Non-Tender Skin: No rashes noted on visualized skin Musculoskeletal: No Chest Wall Tenderness Extremities: No Clubbing, No Cyanosis, No Edema, Normal Pulses Results 08/28/16 00:51 08/28/16 00:51 Lab Results 08/28/16 08/28/16 08/28/16 00:51 00:51 00:51 WBC 3.6 L Hgb 10.6 L Hct 32.3 L Plt Count 204 INR 2.6 APTT 44.3 H Sodium Potassium Chloride Carbon Dioxide BUN Creatinine Glucose Calcium Magnesium Troponin I 0.02 08/28/16 08/28/16 08/28/16 00:51 07:00 12:36 WBC Hgb Hct Plt Count INR APTT Sodium 139 Potassium 3.7 Chloride 102 Carbon Dioxide 24 BUN 15 Creatinine 1.20 Glucose 213 H Calcium 8.9 Magnesium 2.2 Troponin I 0.01 0.00 Short CBC 08/28/16 08/27/16 Range/Units 00:51 18:37 WBC 3.6 L 4.1 L (4.3-11.1) K/mcL Hgb 10.6 L 10.5 L (12.9-16.9) g/dL Hct 32.3 L 31.6 L (37.5-50.1) % Plt Count 204 199 (140-400) K/mcL Neutrophils # 1.9 2.5 (1.6-8.9) K/mcL BMP 08/28/16 08/27/16 Range/Units 00:51 18:37 Sodium 139 138 (136-145) mEq/L Potassium 3.7 3.7 (3.5-4.5) mEq/L Chloride 102 100 (98-109) mEq/L Carbon Dioxide 24 28 (19-29) mEq/L BUN 15 14 (8-26) mg/dL Creatinine 1.20 1.23 (0.72-1.25) mg/dL Glucose 213 H 248 H (70-99) mg/dL Calcium 8.9 8.8 (8.6-10.8) mg/dL Cardiac Enzymes 08/28/16 08/28/16 08/28/16 Range/Units 12:36 07:00 00:51 Troponin I 0.00 0.01 0.02 (0-0.03) ng/mL 08/27/16 Range/Units 18:37 Troponin I 0.02 (0-0.03) ng/mL Impressions Chest X-Ray 08/27/16 17:43 IMPRESSION: Left perihilar airspace disease, asymmetrical pulmonary edema versus pneumonia. D/ / Martin Mckeon MD / Martin Mckeon MD Interpreting Provider: Martin Mckeon MD Chest X-Ray 08/28/16 07:00 IMPRESSION: Possible left lung pneumonia. D/ / Faraz Collazo MD / Faraz Collazo MD Interpreting Provider: Faraz Collazo MD Active Medications Acetaminophen (Tylenol) 650 mg PO Q6HR PRN PRN Reason: Mild Pain (1-3) Stop: 02/26/17 20:57 Last Admin: 08/28/16 06:49 Dose: 650 mg Albuterol/Ipratropium (Duoneb) 3 ml IH [id number] PRN; Protocol PRN Reason: Shortness Of Breath/Wheezing Stop: 02/26/17 22:26 Last Admin: 08/28/16 06:30 Dose: 3 ml Aspirin (Aspirin) 81 mg PO DAILY [facility]ORIS Stop: 02/27/17 09:01 Last Admin: 08/28/16 10:56 Dose: 81 mg Dextrose/Water (Dextrose 50% (Syg)) 25 ml IVP AD PRN PRN Reason: Hypoglycemia Stop: 02/26/17 21:31 Diazepam (Valium) 10 mg PO TID PRN PRN Reason: Spasms Stop: 02/26/17 22:50 Last Admin: 08/28/16 11:07 Dose: 10 mg Divalproex Sodium (Depakote (12 Hr)) 1,000 mg PO BID [facility] Stop: 02/26/17 22:50 Last Admin: 08/28/16 10:56 Dose: 1,000 mg Docusate Sodium (Colace) 100 mg PO BID PRN PRN Reason: Constipation Stop: 02/26/17 20:57 Fenofibrate (Tricor) 162 mg PO DAILY [facility] Stop: 02/27/17 09:01 Last Admin: 08/28/16 10:56 Dose: 162 mg Glucagon (Glucagen) 1 mg IM ONCE PRN PRN Reason: Hypoglycemia Stop: 02/26/17 21:31 Glucose (Gluctose) 15 gm PO ONCE PRN PRN Reason: Hypoglycemia Stop: 02/26/17 21:31 Glucose (Gluctose) 30 gm PO ONCE PRN PRN Reason: Hypoglycemia Stop: 02/26/17 21:31 Dextrose (Dextrose 5%) 1,000 mls @ 100 mls/hr IV CONT PRN PRN Reason: HYPOGLYCEMIA Stop: 02/26/17 21:31 Insulin Human Lispro (Humalog) 0 units SQ HS DELORIS PRN Reason: Protocol Stop: 02/27/17 21:01 Insulin Human Lispro (Humalog) 0 units SQ TIDAC [facility]ORIS PRN Reason: Protocol Stop: 02/27/17 11:31 Last Admin: 08/28/16 11:38 Dose: 2 units Lisinopril (Zestril) 20 mg PO DAILY [facility]ORIS PRN Reason: Protocol Stop: 02/27/17 09:01 Last Admin: 08/28/16 10:56 Dose: 20 mg Metoprolol Tartrate (Lopressor) 50 mg PO BID [facility] Stop: 02/27/17 09:01 Last Admin: 08/28/16 10:56 Dose: 50 mg Naloxone HCl (Narcan) 0.4 mg IVP Q2MIN PRN PRN Reason: Opioid Reversal Stop: 02/26/17 20:54 Ondansetron HCl (Zofran Odt) 4 mg SL Q8HR PRN PRN Reason: Nausea And Vomiting Stop: 02/26/17 20:57 Pantoprazole Sodium (Protonix) 40 mg IVP DAILY [facility] Stop: 02/27/17 09:01 Last Admin: 08/28/16 10:56 Dose: 40 mg Pharmacy Profile Note (Patient Taking Own Medication) 1 each PO HS [facility] Stop: 02/27/17 21:01 Quetiapine Fumarate (Seroquel) 450 mg PO BID [facility]IS PRN Reason: Protocol Stop: 02/26/17 22:46 Last Admin: 08/28/16 11:41 Dose: Not Given Simvastatin (Zocor) 40 mg PO DAILY [facility] Stop: 02/27/17 09:01 Last Admin: 08/28/16 10:56 Dose: 40 mg Warfarin Sodium (Coumadin) 2.5 mg PO [id number] [facility] Stop: 02/27/17 18:01 Warfarin Sodium (Coumadin) 5 mg PO [id number]@1800 [facility] Stop: 02/26/17 23:46 Last Admin: 08/27/16 23:40 Dose: 5 mg - Imaging and Cardiology Chest Xray: report reviewed Stress Test: report reviewed Echo: report reviewed - EKG Interpretation EKG results cardiology: personally reviewed (ventricularly paced) Consult Discharge Plan - Plan Referrals: Feliciano Laguna, VICE PRESIDENT OF PRODUCT MARKETING [Primary Care Provider] - <Caron Parisi - Last Filed: 08/28/16 18:35> Date of Encounter: 08/28/16 Assessment and Plan Discussion w patient/family: The assessment and plan as outlined above was discussed with the patient and/or family members who expressed understanding and agreement. All questions were answered. Thank you for involving us in the care of your patient. Please call with any questions. History of Present Illness History of present illness: Mr. Magaña is a 61 year old male All Systems Review: A 10-system review of systems was performed and is negative for pertinent findings except as documented above in the HPI. Physical Examination Vital Signs, Last 4 Hours Temp Pulse Resp BP Pulse Ox 08/28/16 15:23 98.0 F 71 14 123/79 95 Results 08/28/16 00:51 08/28/16 00:51 Lab Results 08/28/16 08/28/16 08/28/16 00:51 00:51 00:51 WBC 3.6 L Hgb 10.6 L Hct 32.3 L Plt Count 204 INR 2.6 APTT 44.3 H Sodium Potassium Chloride Carbon Dioxide BUN Creatinine Glucose Calcium Magnesium Troponin I 0.02 08/28/16 08/28/16 08/28/16 00:51 07:00 12:36 WBC Hgb Hct Plt Count INR APTT Sodium 139 Potassium 3.7 Chloride 102 Carbon Dioxide 24 BUN 15 Creatinine 1.20 Glucose 213 H Calcium 8.9 Magnesium 2.2 Troponin I 0.01 0.00 - Attending Attestation I examined this patient and my medical decision-making was reviewed with the WORKERS COMPENSATION CLAIMS SUPERVISOR/PA/Advanced Practice Nurse/Resident Physician. I agree with the documented findings, disposition and treatment plan. Mr. Magaña presents with atypical chest pain. He's had no acute ECG findings and negative troponins. His echo demonstrated no concerning findings and stress test was negative for ischemia. He initially told our N.P. that he wanted to follow up in [place] with his Roll Table Operator there but now states he may consider staying locally. He will discuss this with his family. We will sign off at this time. If the patient decides he wants local care, please set him up with an outpatient office visit. Otherwise, he appears to be on appropriate cardiac meds.
--- NOTE | 2016-08-28 16:35 | Electrocardiograph Report ---
[facility] Test Date: 2016-08-27 Pat Name: Bruno Magaña Department: 105 Room: 3B34 Gender: M Senior Medical Director: TIFFANY : 1955 Requested By: Marlee Liu Order Number: [id number] Reading MD: Jeremy Corral DO Measurements Intervals [place] Rate: 75 P: DE: 0 QRS: -59 QRSD: 132 T: 100 QT: 457 QTc: 485 Interpretive Statements ELECTRONIC VENTRICULAR PACEMAKER Electronically Signed On 08-28-16 16:35:01 EST by Jeremy Corral DO
[2016-08-28] MEDS: Isosorbide MONOnitrate (24 HR) 30 MG TAB.ER.24H PO SCH (17:11)
--- NOTE | 2016-08-28 17:26 | Internal Med Progress Note ---
Date of Encounter: 08/28/16 Time of Encounter: 14:30 - Assessment and plan (1) Pneumonia Current Visit: Yes Status: Acute Assessment and plan: Chest x-ray consistent with pneumonia versus unilateral pulmonary edema with pneumonia being more likely given the clinical setting of shortness of breath and O2 requirement. He is currently on 2 L, he is not on oxygen at home. Will initiate levofloxacin. No recent admissions. No concern for pseudomonas. Patient continues to endorse shortness of breath above his norm, will add aerosols. Patient stated he ran out several of his medications as he states he always does. Strongly suspect patient is taking more of his medication when he is prescribed. ITS Impressions Chest X-Ray 08/27/16 17:43 IMPRESSION: Left perihilar airspace disease, asymmetrical pulmonary edema versus pneumonia. D/ / Martin Mckeon MD / Martin Mckoen MD Interpreting Provider: Martin Mckeon MD Chest X-Ray 08/28/16 07:00 IMPRESSION: Possible left lung pneumonia. D/ / Faraz Collazo MD / Faraz Collazo MD Interpreting Provider: Faraz Collazo MD (2) Chest pain Current Visit: Yes Status: Resolved Assessment and plan: Patient currently denies chest pain but states that he has had chest pain intermittently over the past year and states that it is worsening. He states feeling that relieves his chest pain as nitroglycerin and he is concerned that he has gone through some many nitroglycerin prescriptions this year. Cardiology were onboard for possible ischemic workup versus medical management with possibly adding Imdur to his regimen. Appreciate cardiology recommendations. Patient stating his signal system testing maintainer is at [place] however he states that he would like to have a signal system testing maintainer and a "doctor for my pacemaker" here at [facility]. Chest x-ray revealing pneumonia. Troponins negative. Echocardiogram unremarkable with ejection fraction of 60-65%. Stress test negative for ischemia or infarct. ITS Impressions Chest X-Ray 08/27/16 17:43 IMPRESSION: Left perihilar airspace disease, asymmetrical pulmonary edema versus pneumonia. D/ / Martin Mckeon MD / Martin Mckeon MD Interpreting Provider: Martin Mckeon MD Chest X-Ray 08/28/16 07:00 IMPRESSION: Possible left lung pneumonia. D/ / Faraz Collazo MD / Faraz Collazo MD Interpreting Provider: Faraz Collazo MD Nuclear stress test impression: Pharmacologic stress ECG is nondiagnostic for ischemia due to baseline paced rhythm. Gated ejection fraction equals 73%. Perfusion imaging was negative for ischemia or infarct. Echocardiogram impressions: LVEF 60-65%. Normal LV chamber size, wall thickness and function. A typical symptom motion consistent with paced rhythm. Indeterminate diastolic function. Normal right ventricular structure and function. No evidence of pulmonary hypertension. A device lead was visualized in the right atrium and right ventricle. No significant valvular dysfunction. Qualifiers: Chest pain type: unspecified Qualified Code(s): R07.9 - Chest pain, unspecified (3) DVT prophylaxis Current Visit: Yes Status: Acute Assessment and plan: Therapeutic on Coumadin. INR 2.6. (4) Hyperlipidemia Current Visit: Yes Status: Chronic Assessment and plan: Triglyceride 500. Total cholesterol 220. Patient with labs from prior blood work revealing triglycerides 1070 and total cholesterol in the 300s. He states he has changed his diet. Recommend continued low cholesterol diet and continuation of statin and fenofibrate. Qualifiers: Hyperlipidemia type: mixed hyperlipidemia Qualified Code(s): E78.2 - Mixed hyperlipidemia (5) A-fib Current Visit: Yes Status: Chronic Assessment and plan: History of prior ablation. He does have a pacemaker. Rate controlled. INR therapeutic on Coumadin, 2.6. Qualifiers: Atrial fibrillation type: chronic Qualified Code(s): I48.2 - Chronic atrial fibrillation (6) COPD (chronic obstructive pulmonary disease) Current Visit: Yes Status: Chronic Assessment and plan: No acute exacerbation. Presentation more consistent with pneumonia. Continue pulmonary toilet. Of note, patient will likely need refills of his COPD controller medications upon disposition. Qualifiers: COPD type: unspecified COPD Qualified Code(s): J44.9 - Chronic obstructive pulmonary disease, unspecified (7) Diabetes mellitus Current Visit: Yes Status: Chronic Assessment and plan: Relatively well-controlled at home with an A1c of 7.4%. We will continue sliding scale while admitted. Qualifiers: Diabetes mellitus type: type 2 Diabetes mellitus complication status: without complication Diabetes mellitus senior living insulin use: without terminologist use Qualified Code(s): E11.9 - Type 2 diabetes mellitus without complications (8) History of cardiac pacemaker Current Visit: Yes Status: Chronic (9) Mood disorder Current Visit: Yes Status: Chronic Assessment and plan: Mood and affect stable during my interaction with him. Of note, patient stating that he takes Seroquel 50 mg 3 times a day and then 850 mg at bedtime. Maximum dosage of Seroquel as 800 mg per day. He uses a mail-in company through [email or web address] we are unable to verify this dosage. In review of his chart, the most recent doses listed was 300 mg at bedtime. Will do 40 mg twice a day at this time. Will not go above recommended max dose of 800 mg per day without seeing proof that that is what he takes at home. He does state that he frequently runs out of his medications before they are due for refill. Recommend follow-up outpatient closely. (10) CHF (congestive heart failure) Current Visit: Yes Status: Ruled-out Assessment and plan: Ruled out. Echocardiogram unremarkable with ejection fraction of 60-65% Qualifiers: Congestive heart failure type: unspecified congestive heart failure type Congestive heart failure chronicity: acute on chronic Qualified Code(s): I50.9 - Heart failure, unspecified - Subjective Interval history: Nicol is seen and examined. On examination, patient sitting upright in bed conversing with his family. Patient denies chest pain at this time but did not continues to endorse shortness of breath above his norm. Patient is stating he is eating well but he is concerned that he is gone through so many bottles of nitroglycerin over the past year. - Constitutional Vitals: Temp Pulse Resp BP Pulse Ox 98.0 F 71 14 123/79 95 08/28/16 15:23 08/28/16 15:23 08/28/16 15:23 08/28/16 15:23 08/28/16 15:23 General appearance: Present: cooperative, A&O X 3, pleasant, no acute distress, obese, answers questions appropriately - Head Head exam: Present: atraumatic, normocephalic - Eye Eye exam: Present: PERRL, conjuntiva pink, sclera anicteric Pupils: Present: PERRL - Neck Neck exam general surgery: Present: supple, trachea midline. Absent: lymphadenopathy - Respiratory Respiratory exam: Present: decreased breath sounds. Absent: accessory muscle use, rales, respiratory distress, rhonchi, wheezes - Cardiovascular Cardiovascular exam: Present: RRR, +S1, +S2. Absent: diastolic murmur, gallop, rubs, systolic murmur - GI/Abdominal GI/Abdominal exam: Present: distended, normal bowel sounds, soft, no peritoneal signs. Absent: tenderness - Extremities Exam Extremities exam: Present: warm, radial pulses palpable and symetrical. Absent : calf tenderness, cyanotic, pedal edema - Neurological Exam Neurological exam: Present: alert, CN II-XII intact, oriented X3, no focal deficits, strengths equal and symetr throughout. Absent: pronater drift, facial droop, speech deficit - Skin Skin exam: Present: dry, intact, normal color, warm Internal Medicine: Result - Labs CBC & Chem 7: 08/28/16 00:51 08/28/16 00:51 Labs: Short CBC 08/28/16 Range/Units 00:51 WBC 3.6 L (4.3-11.1) K/mcL Hgb 10.6 L (12.9-16.9) g/dL Hct 32.3 L (37.5-50.1) % Plt Count 204 (140-400) K/mcL Neutrophils # 1.9 (1.6-8.9) K/mcL BMP 08/28/16 00:51 Sodium 139 Potassium 3.7 Chloride 102 Carbon Dioxide 24 BUN 15 Creatinine 1.20 Glucose 213 H Calcium 8.9 Cardiac Enzymes 08/28/16 08/28/16 08/28/16 Range/Units 00:51 07:00 12:36 Troponin I 0.02 0.01 0.00 (0-0.03) ng/mL - ABG Interpretation ABG results: PT/INR, D-dimer PT 28.7 Seconds (9.4-12.1) H 08/28/16 00:51 - Impressions Impressions Chest X-Ray 08/28/16 07:00 IMPRESSION: Possible left lung pneumonia. D/ / Faraz Collazo MD / Faraz Collazo MD Interpreting Provider: Faraz Collazo MD Consult Discharge Plan - Plan Referrals: Feliciano Laguna, QUILTING SUPERVISOR [Primary Care Provider] -
[2016-08-28] MEDS ORDERED: Levofloxacin 750 MG/150 ML 750 MG/150 ML BAG IVPB SCH (18:00)
[2016-08-28] MEDS ORDERED: *HR* Warfarin 2.5 MG TABLET PO SCH (18:00)
[2016-08-28] MEDS ORDERED: NALTREXONE HCL 50 MG PO SCH (21:00)
[2016-08-28] MEDS ORDERED: (Naltrexone Hcl [Revia] 50 MG) PO SCH (21:00)
[2016-08-28] MEDS ORDERED: Insulin LISPRO 300 UNITS/3 ML VIAL SQ SCH ×2 (21:00)
[2016-08-29] MEDS: Ipratropium/Albuterol Neb 3 ML IH PRN ×2 (02:13→10:05)
[2016-08-29 04:57] LABS: INR 4.1
[2016-08-29 05:00] LABS: Prothrombin Time 46.4 Seconds (9.4-12.1)
[2016-08-29] MEDS: Isosorbide MONOnitrate (24 HR) 30 MG TAB.ER.24H PO SCH (07:48)
[2016-08-29] MEDS: Pantoprazole 40 MG VIAL IVP SCH (07:48)
[2016-08-29] MEDS: Fenofibrate 54 MG TABLET PO SCH (07:48)
[2016-08-29] MEDS: Insulin LISPRO 300 UNITS/3 ML VIAL SQ SCH ×2 (07:48→11:50)
[2016-08-29] MEDS: Aspirin 81 MG TAB.CHEW PO SCH (07:48)
[2016-08-29] MEDS: Divalproex (12 HR) 500 MG TABLET PO SCH (07:48)
[2016-08-29] MEDS: Lisinopril 20 MG TABLET PO SCH (07:49)
[2016-08-29] MEDS ORDERED: 0.9 % Sodium Chloride 1,000 ML IVC ONE (07:51)
[2016-08-29 08:36] LABS: Hematocrit 29.9 % (37.5-50.1); Hemoglobin 9.8 g/dL (12.9-16.9); Mean Corpuscular HGB Conc 32.8 g/dL (31.6-35.5); Mean Corpuscular Hemoglobin 30.6 pg (28.0-33.3); Mean Corpuscular Volume 93.4 fL (83.0-100.0); Mean Platelet Volume 9.3 fL (9.4-12.4); Platelet Count 209 K/mcL (140-400); Red Cell Distribution Width 13.4 % (11.5-14.5)
[2016-08-29 09:02] LABS: Lymphocytes # 1.3 K/mcL (0.6-4.6); Monocytes # 0.5 K/mcL (0.0-1.3); Neutrophils # 2.2 K/mcL (1.6-8.9); Platelet Estimate Normal (Normal)
[2016-08-29 12:14] VITALS: BP 158/66
--- NOTE | 2016-08-29 12:42 | Discharge Summary ---
Date of Encounter: 08/29/16 Time of Encounter: 07:45 - Discharge Diagnosis (1) Pneumonia Priority: Primary Status: Ruled-out Qualifiers: Pneumonia type: due to unspecified organism Laterality: left Lung location: lower lobe of lung Qualified Code(s): J18.9 - Pneumonia, unspecified organism (2) A-fib Priority: Secondary Status: Chronic Qualifiers: Atrial fibrillation type: chronic Qualified Code(s): I48.2 - Chronic atrial fibrillation (3) COPD (chronic obstructive pulmonary disease) Priority: Secondary Status: Chronic Qualifiers: COPD type: unspecified COPD Qualified Code(s): J44.9 - Chronic obstructive pulmonary disease, unspecified (4) Diabetes mellitus Priority: Secondary Status: Chronic Qualifiers: Diabetes mellitus type: type 2 Diabetes mellitus complication status: without complication Diabetes mellitus long term care social worker insulin use: without penitentiary use Qualified Code(s): E11.9 - Type 2 diabetes mellitus without complications (5) History of cardiac pacemaker Priority: Secondary Status: Chronic (6) Hyperlipidemia Priority: Secondary Status: Chronic Qualifiers: Hyperlipidemia type: mixed hyperlipidemia Qualified Code(s): E78.2 - Mixed hyperlipidemia (7) Mood disorder Priority: Secondary Status: Chronic (8) Chest pain Priority: Secondary Status: Resolved Qualifiers: Chest pain type: precordial chest pain Qualified Code(s): R07.2 - Precordial pain (9) CHF (congestive heart failure) Priority: Secondary Status: Ruled-out Qualifiers: Congestive heart failure type: diastolic Congestive heart failure chronicity: acute on chronic Qualified Code(s): I50.33 - Acute on chronic diastolic (congestive) heart failure - Discharge Medications Prescriptions: Aspirin Enteric Coated [Aspirin EC] 81 mg PO DAILY #30 tablet. Cefdinir [Omnicef] 300 mg PO BID #24 capsule Doxycycline Hyclate 100 mg PO BID #24 tablet Isosorbide MONOnitrate (24 HR) [Imdur] 30 mg PO DAILY #30 tab.er.24h PredniSONE 10 mg PO DAILY 8 Days Home Medications: Albuterol Sulfate [Ventolin Hfa] 2 puff IH Q4H PRN 08/27/16 [History] Diazepam [Valium] 10 mg PO TID PRN 08/27/16 [History] Divalproex (12 HR) [Depakote (12 HR)] 1,000 mg PO BID 08/27/16 [History] Fenofibrate 160 mg PO DAILY 08/27/16 [History] Lisinopril [Zestril] 20 mg PO DAILY 08/27/16 [History] Metoprolol Tartrate 50 mg PO BID 08/27/16 [History] Naltrexone HCl [Revia] 50 mg PO HS 08/27/16 [History] Quetiapine Fumarate 50 mg PO BID 08/27/16 [History] Rosuvastatin Calcium 10 mg PO DAILY 08/27/16 [History] Tamsulosin [Flomax] 0.4 mg PO DAILY 08/27/16 [History] Warfarin Sodium 2.5 - 5 mg PO AD 08/27/16 [History] Quetiapine Fumarate [Seroquel] 800 mg PO HS 08/28/16 [History] Aspirin Enteric Coated [Aspirin EC] 81 mg PO DAILY #30 tablet.dr 08/29/16 [Rx] Cefdinir [Omnicef] 300 mg PO BID #24 capsule 08/29/16 [Rx] Doxycycline Hyclate 100 mg PO BID #24 tablet 08/29/16 [Rx] Isosorbide MONOnitrate (24 HR) [Imdur] 30 mg PO DAILY #30 tab.er.24h 08/29/16 [ Rx] PredniSONE 10 mg PO DAILY 8 Days 08/29/16 [Rx] Allergies/Adverse Reactions: Allergies No Known Allergies Allergy (Verified 08/27/16 20:43) Procedures/tests Complete & Pending: Procedures Performed prior 72 hours Category Date Time Status NM crescencio perf SPECT multi [NM] Routine Exams 08/27/16 22:37 Taken EV echocardiogram Routine Y 08/28/16 21:37 Completed SP pharm nuclear stress Routine Y 08/28/16 07:30 Completed Date of admission: 08/27/16 20:20 Primary care physician: Feliciano Laguna CNP Discharging clinician: Elieser Atkins Anticipated date of discharge: 08/29/16 - Patient Status Disposition: Home, Self-Care Condition: Good Functional capacity at discharge: independent ambulation Overall status at discharge: patient is progressing back to baseline - Discharge Instructions Instructions: Chest Pain (DC), Diabetes Mellitus Type 2 in Adults (DC), Chronic Obstructive Pulmonary Disease (DC), Community-acquired Pneumonia (DC) Follow Up With: Feliciano Laguna CNP [Primary Care Provider] - Additional Instructions: Recent history of hold his Coumadin for 2 days and resume taking it at 2.5 mg. Please check INR on Wednesday08/31/16 - Diet and Activity Activity: increase activity as tolerated Diet: diabetic diet, low fat, low cholesterol, low salt diet Hospital course: Mr. Magaña is a 61 year old male with history of A. fib, COPD, diabetes, hypertension was admitted here with chest pain and shortness of breath. The patient was taking nitroglycerin with relief of pain. He was observed in the hospital on telemetry and his troponins were trended. He had negative troponins. He then underwent a nuclear stress test which was negative for ischemia. Patient was also diagnosed with pneumonia and is community-acquired. His blood cultures have been negative. He received intravenous Levaquin while he was in the hospital. He will be discharged on treatment with Omnicef and doxycycline. Patient does take high doses of Seroquel for mood disorder. At this time, he is stable to be discharged home. He does not require home oxygen. - Time Spent with Patient Total time spent providing and/or coordinating discharge services: Greater than 30 minutes (35 min) - Constitutional Vitals: Temp Pulse Resp BP Pulse Ox 98.5 F 72 18 158/66 98 08/29/16 11:21 08/29/16 11:21 08/29/16 11:21 08/29/16 12:07 08/29/16 12:07 General appearance: Present: cooperative, A&O X 3, pleasant, no acute distress, obese, answers questions appropriately - Respiratory Respiratory exam: Present: decreased breath sounds (Diminished bilateral), prolonged expiratory phase, wheezes. Absent: accessory muscle use, rales, rhonchi Additional comments: Coarse breath sounds in left lower lobe - Cardiovascular Cardiovascular exam: Present: RRR, +S1, +S2. Absent: diastolic murmur, gallop, rubs, systolic murmur - GI/Abdominal GI/Abdominal exam: Present: normal bowel sounds, soft, no peritoneal signs. Absent: distended, tenderness - Extremities Exam Extremities exam: Present: warm, radial pulses palpable and symetrical. Absent : calf tenderness, cyanotic, pedal edema - Attending Attestation This document has been at least partially created by [employer] recognition technology by Dr. Atkins. Errors in grammar, wording or other phrases may exist. If errors are found after the documentation is signed, they will be addressed individually in the addendum section of this document when appropriate.
[2016-08-29] MEDS ORDERED: Ipratropium/Albuterol Neb 3 ML IH ONE (13:07)
[2016-08-29] MEDS ORDERED: *HR* Warfarin 5 MG TABLET PO SCH (18:00)
== END 2016-08-29 14:50 | disposition home or self-care (01) ==
LOC: 3BNU 17:31 → EMEROO 17:31 → SUATTDRO 20:20 → 3BNU 21:03
PROVIDERS: ADMIT Internal Medicine; ATTEND Internal Medicine

== ENCOUNTER 2016-09-08 13:49 | Observation (INO) ==
[2016-09-08] MEDS ORDERED: Naloxone 0.4 MG/ML INJ IVP ONE (14:27)
[2016-09-08 14:50] LABS: Basophils % 0.4 %; Eosinophils # 0.1 K/mcL (0.0-0.6); Hematocrit 34.5 % (37.5-50.1); Hemoglobin 11.5 g/dL (12.9-16.9); Immature Granulocytes % 2.9 % (0-4); Lymphocytes # 1.3 K/mcL (0.6-4.6); Lymphocytes % 17.5 %; Mean Corpuscular HGB Conc 33.3 g/dL (31.6-35.5); Mean Corpuscular Hemoglobin 30.6 pg (28.0-33.3); Mean Corpuscular Volume 91.8 fL (83.0-100.0); Mean Platelet Volume 9.4 fL (9.4-12.4); Monocytes # 0.7 K/mcL (0.0-1.3); Monocytes % 9.7 %; Neutrophils # 4.9 K/mcL (1.6-8.9); Platelet Count 155 K/mcL (140-400); Red Blood Count 3.76 M/mcL (4.19-5.50); Red Cell Distribution Width 14.2 % (11.5-14.5); Segmented Neutrophils % 68.5 %
[2016-09-08 14:56] LABS: INR 2.4; Prothrombin Time 26.4 Seconds (9.4-12.1)
[2016-09-08 14:59] LABS: Activated Partial Thrombo Time 37.2 Seconds (26.0-36.0)
--- NOTE | 2016-09-08 15:03 | Emergency Department Note ---
Disposition Clinical Impression: Hyperkalemia Altered mental status Qualifiers: Altered mental status type: unspecified Qualified Code(s): R41.82 - Altered mental status, unspecified Disposition: Admitted As Inpatient Condition: Good Time of Disposition: 17:46 General Adult HPI - General Chief complaint: ED Neuro Symptoms/Deficit Stated complaint: Needs blood check/Neuro Symptoms Time Seen by Provider: 09/08/16 13:57 Source: patient Mode of arrival: ambulatory Limitations: no limitations Nursing Notes Reviewed: Yes Vital Signs Reviewed: Yes - History of Present Illness HPI Narrative: History source: Patient is unable to provide information for this note. Info was gathered from the patient, hospital staff, the patient's chart. History limitations: Patient condition Medications: As per nurses note 61-year-old male presents with concerns of somnolence and altered mental status. Son is with the patient who states he has been having slurred speech for the past 3 days. Today when the son picked him up to go to his routine laboratory testing for his Coumadin the, the patient was significantly altered, having difficulty walking, was slurring his speech and was unable to stay awake. Patient denies taking extra of his medications. Patient denies suicidal ideation or homicidal ideation. Patient started tramadol 3 days ago which coincides with the start of symptoms. Patient denies fever, chills, nausea, vomiting, headache, chest pain, shortness of breath, abdominal pain. Pain Scale: 0 - Related Data Home Medications Medication Instructions Recorded Confirmed Albuterol Sulfate [Ventolin Hfa] 2 puff IH Q4H PRN 08/27/16 09/08/16 Diazepam [Valium] 10 mg PO TID PRN 08/27/16 09/08/16 Fenofibrate 160 mg PO DAILY 08/27/16 09/08/16 Lisinopril [Zestril] 20 mg PO DAILY 08/27/16 09/08/16 Metoprolol Tartrate 50 mg PO BID 08/27/16 09/08/16 Naltrexone HCl [Revia] 50 mg PO HS 08/27/16 09/08/16 Quetiapine Fumarate 50 mg PO HS 08/27/16 09/08/16 Rosuvastatin Calcium 10 mg PO DAILY 08/27/16 09/08/16 Tamsulosin [Flomax] 0.4 mg PO DAILY 08/27/16 09/08/16 Warfarin Sodium 2.5 mg PO DAILY 08/27/16 09/08/16 Quetiapine Fumarate [Seroquel] 800 mg PO HS 08/28/16 09/08/16 Aspirin/Acetaminophen/Caffeine 1 tab PO DAILY PRN 09/08/16 09/08/16 [Excedrin Migraine Caplet] Previous Rx's Medication Instructions Recorded Aspirin Enteric Coated [Aspirin EC] 81 mg PO DAILY #30 tablet. 08/29/16 Isosorbide MONOnitrate (24 HR) 30 mg PO DAILY #30 tab.er.24h 08/29/16 [Imdur] Promethazine [Phenergan] 25 mg PO Q6HR PRN #14 tablet 09/05/16 Tramadol HCl [Ultram] 50 mg PO QID PRN #14 tab 09/05/16 Allergies Allergy/AdvReac Type Severity Reaction Status Date / Time No Known Allergies Allergy Verified 08/27/16 20:43 Limitations: ROS unobtainable due to patients medical condition Past Medical History - Past Medical History Medical history: Reports: atrial fibrillation, COPD, diabetes, hyperlipidemia, hypertension Surgical history: Reports: other (pacemaker) - Social History Smoking Status: Former smoker Smokeless Tobacco Status: No Alcohol use: Reports: occasionally Drug use: Reports: none Physical Exam General: Somnolent, in no acute distress Skin: Warm, dry, intact Head: Normocephalic and atraumatic Neck: Supple, trachea midline and no tenderness Cardiovascular: RRR, no murmur, normal perfusion Respiratory: CTAB, no wheezing, cough, or respiratory distress Musculoskeletal: Normal strength, no tenderness, swelling or deformity GI: Soft, nontender, nondistended. Bowel sounds present Neuro: Patient moving all extremities, somnolent with slurred speech. Psychiatric: cooperative and appropriate mood and affect. - General Limitations: no limitations General appearance: alert Course Vital Signs Temperature 97.0 F L 09/08/16 13:51 Pulse Rate 73 09/08/16 13:51 Respiratory Rate 14 09/08/16 13:51 Blood Pressure 83/52 09/08/16 13:51 O2 Sat by Pulse Oximetry 98 09/08/16 13:51 Temperature 97.8 F 09/08/16 18:56 Pulse Rate 75 09/08/16 17:31 Respiratory Rate 20 09/08/16 18:56 Blood Pressure 118/73 09/08/16 18:56 O2 Sat by Pulse Oximetry 99 09/08/16 17:31 Oxygen Delivery Oxygen Delivery Room Air Medical Decision Making - MDM Narrative Medical decision making narrative: Patient was observed for multiple hours in the emergency department. CT of his head did not reveal acute intracranial hemorrhage or fracture or mass. Patient is hyperkalemic and was given calcium gluconate in the emergency department. He did become gradually more alert however he is not back to his baseline per the son. Patient will be admitted to the hospital for further care and evaluation as he is still not able to ambulate in the emergency department. - Medical Records Medical records reviewed: Yes I reviewed the patient's medical records. - Lab Data Lab results reviewed: Yes I reviewed the patient's lab results. Result diagrams: 09/08/16 14:43 09/08/16 14:43 Lab Results 09/08/16 09/08/16 09/08/16 Range/Units 14:43 14:43 14:43 WBC 7.2 (4.3-11.1) K/mcL RBC 3.76 L (4.19-5.50) M/mcL Hgb 11.5 L D (12.9-16.9) g/dL Hct 34.5 L (37.5-50.1) % MCV 91.8 (83.0-100.0) fL MCH 30.6 (28.0-33.3) pg MCHC 33.3 (31.6-35.5) g/dL RDW 14.2 (11.5-14.5) % Plt Count 155 D (140-400) K/mcL MPV 9.4 (9.4-12.4) fL Immature Gran % 2.9 (0-4) % Seg Neutrophils % 68.5 % Lymphocytes % 17.5 % Monocytes % 9.7 % Eosinophils % 1.0 % Basophils % 0.4 % Neutrophils # 4.9 (1.6-8.9) K/mcL Lymphocytes # 1.3 (0.6-4.6) K/mcL Monocytes # 0.7 (0.0-1.3) K/mcL Eosinophils # 0.1 (0.0-0.6) K/mcL Basophils # 0.0 (0.0-0.2) K/mcL PT 26.4 H (9.4-12.1) Seconds INR 2.4 APTT 37.2 H (26.0-36.0) Seconds Sodium 132 L (136-145) mEq/L Potassium 5.5 H (3.5-4.5) mEq/L Chloride 104 (98-109) mEq/L Carbon Dioxide 21 (19-29) mEq/L BUN 47 H D (8-26) mg/dL Creatinine 1.88 H D (0.72-1.25) mg/dL Est GFR ( Amer) 44 L (> 60) Est GFR (Non-Af Amer) 37 L (> 60) BUN/Creatinine Ratio 25 (6-26) Glucose 181 H (70-99) mg/dL Calculated Osmolality 291 (280-300) Calcium 8.4 L (8.6-10.8) mg/dL Total Bilirubin 0.5 (0.2-1.2) mg/dL Direct Bilirubin 0.2 (0.0-0.5) mg/dL Indirect Bilirubin 0.3 (0.0-1.2) mg/dL AST 12 (5-34) Units/L ALT 19 (0-55) Units/L Alkaline Phosphatase 49 (38-126) Units/L Ammonia (18-72) mcmol/L Troponin I (0-0.03) ng/mL Serum Total Protein 6.8 (6.0-8.3) g/dL Albumin 3.4 L (3.5-5.0) g/dL Globulin 3.4 (2.4-3.5) g/dL Albumin/Globulin Ratio 1.0 L (1.1-2.2) Lipase 22 (8-78) Units/L TSH (0.350-4.840) mcIU/mL Urine Color (Yellow) Urine Clarity (Clear) Urine pH (5.0-8.0) pH Units Ur Specific Keaton (1.010-1.025) Urine Protein (Neg-Trace) mg/dL Urine Glucose (UA) (Normal) mg/dL Urine Ketones (Negative) mg/dL Urine Blood (Negative) Urine Nitrite (Negative) Urine Bilirubin (Negative) Urine Urobilinogen (Normal) mg/dL Ur Leukocyte Esterase (Negative) Urine Microscopic RBC (0-3) per hpf Urine Microscopic WBC (0-3) per hpf Ur Squamous Epith Cells (None-Few) per lpf Urine Bacteria (None-Few) per hpf Hyaline Casts Ur Culture Indicated? (NO) Urine Opiates Screen (Lnlanh=378) ng/mL Ur Barbiturates Screen (Xowjfm=571) ng/mL Ur Phencyclidine Scrn (Cutoff=25) ng/mL Ur Amphetamines Screen (Jtmnaa=7468) ng/mL U Benzodiazepines Scrn (Pkgenf=072) ng/mL Urine Cocaine Screen (Cutoff= 300) ng/mL U Marijuana (THC) Screen (Cutoff = 50) ng/mL Ethyl Alcohol < 10 (0-10) mg/dL 09/08/16 09/08/16 09/08/16 Range/Units 14:43 16:23 16:24 WBC (4.3-11.1) K/mcL RBC (4.19-5.50) M/mcL Hgb (12.9-16.9) g/dL Hct (37.5-50.1) % MCV (83.0-100.0) fL MCH (28.0-33.3) pg MCHC (31.6-35.5) g/dL RDW (11.5-14.5) % Plt Count (140-400) K/mcL MPV (9.4-12.4) fL Immature Gran % (0-4) % Seg Neutrophils % % Lymphocytes % % Monocytes % % Eosinophils % % Basophils % % Neutrophils # (1.6-8.9) K/mcL Lymphocytes # (0.6-4.6) K/mcL Monocytes # (0.0-1.3) K/mcL Eosinophils # (0.0-0.6) K/mcL Basophils # (0.0-0.2) K/mcL PT (9.4-12.1) Seconds INR APTT (26.0-36.0) Seconds Sodium (136-145) mEq/L Potassium (3.5-4.5) mEq/L Chloride (98-109) mEq/L Carbon Dioxide (19-29) mEq/L BUN (8-26) mg/dL Creatinine (0.72-1.25) mg/dL Est GFR ( Amer) (> 60) Est GFR (Non-Af Amer) (> 60) BUN/Creatinine Ratio (6-26) Glucose (70-99) mg/dL Calculated Osmolality (280-300) Calcium (8.6-10.8) mg/dL Total Bilirubin (0.2-1.2) mg/dL Direct Bilirubin (0.0-0.5) mg/dL Indirect Bilirubin (0.0-1.2) mg/dL AST (5-34) Units/L ALT (0-55) Units/L Alkaline Phosphatase (38-126) Units/L Ammonia (18-72) mcmol/L Troponin I 0.02 (0-0.03) ng/mL Serum Total Protein (6.0-8.3) g/dL Albumin (3.5-5.0) g/dL Globulin (2.4-3.5) g/dL Albumin/Globulin Ratio (1.1-2.2) Lipase (8-78) Units/L TSH (0.350-4.840) mcIU/mL Urine Color Yellow (Yellow) Urine Clarity Cloudy A (Clear) Urine pH 5.5 (5.0-8.0) pH Units Ur Specific Keaton 1.014 (1.010-1.025) Urine Protein Negative (Neg-Trace) mg/dL Urine Glucose (UA) Normal (Normal) mg/dL Urine Ketones Negative (Negative) mg/dL Urine Blood Trace H (Negative) Urine Nitrite Negative (Negative) Urine Bilirubin Negative (Negative) Urine Urobilinogen Normal (Normal) mg/dL Ur Leukocyte Esterase Negative (Negative) Urine Microscopic RBC 3-5 H (0-3) per hpf Urine Microscopic WBC 0-3 (0-3) per hpf Ur Squamous Epith Cells Many H (None-Few) per lpf Urine Bacteria None Seen (None-Few) per hpf Hyaline Casts Test Not Performed Ur Culture Indicated? NO (NO) Urine Opiates Screen Negative (Nktftn=490) ng/mL Ur Barbiturates Screen Negative (Tajvta=522) ng/mL Ur Phencyclidine Scrn Negative (Cutoff=25) ng/mL Ur Amphetamines Screen Negative (Wmdhnn=9389) ng/mL U Benzodiazepines Scrn Positive H (Cnhvzr=046) ng/mL Urine Cocaine Screen Negative (Cutoff= 300) ng/mL U Marijuana (THC) Screen Negative (Cutoff = 50) ng/mL Ethyl Alcohol (0-10) mg/dL 09/08/16 09/08/16 Range/Units 17:54 17:54 WBC (4.3-11.1) K/mcL RBC (4.19-5.50) M/mcL Hgb (12.9-16.9) g/dL Hct (37.5-50.1) % MCV (83.0-100.0) fL MCH (28.0-33.3) pg MCHC (31.6-35.5) g/dL RDW (11.5-14.5) % Plt Count (140-400) K/mcL MPV (9.4-12.4) fL Immature Gran % (0-4) % Seg Neutrophils % % Lymphocytes % % Monocytes % % Eosinophils % % Basophils % % Neutrophils # (1.6-8.9) K/mcL Lymphocytes # (0.6-4.6) K/mcL Monocytes # (0.0-1.3) K/mcL Eosinophils # (0.0-0.6) K/mcL Basophils # (0.0-0.2) K/mcL PT (9.4-12.1) Seconds INR APTT (26.0-36.0) Seconds Sodium (136-145) mEq/L Potassium (3.5-4.5) mEq/L Chloride (98-109) mEq/L Carbon Dioxide (19-29) mEq/L BUN (8-26) mg/dL Creatinine (0.72-1.25) mg/dL Est GFR ( Amer) (> 60) Est GFR (Non-Af Amer) (> 60) BUN/Creatinine Ratio (6-26) Glucose (70-99) mg/dL Calculated Osmolality (280-300) Calcium (8.6-10.8) mg/dL Total Bilirubin (0.2-1.2) mg/dL Direct Bilirubin (0.0-0.5) mg/dL Indirect Bilirubin (0.0-1.2) mg/dL AST (5-34) Units/L ALT (0-55) Units/L Alkaline Phosphatase (38-126) Units/L Ammonia 41 (18-72) mcmol/L Troponin I (0-0.03) ng/mL Serum Total Protein (6.0-8.3) g/dL Albumin (3.5-5.0) g/dL Globulin (2.4-3.5) g/dL Albumin/Globulin Ratio (1.1-2.2) Lipase (8-78) Units/L TSH 0.504 (0.350-4.840) mcIU/mL Urine Color (Yellow) Urine Clarity (Clear) Urine pH (5.0-8.0) pH Units Ur Specific Keaton (1.010-1.025) Urine Protein (Neg-Trace) mg/dL Urine Glucose (UA) (Normal) mg/dL Urine Ketones (Negative) mg/dL Urine Blood (Negative) Urine Nitrite (Negative) Urine Bilirubin (Negative) Urine Urobilinogen (Normal) mg/dL Ur Leukocyte Esterase (Negative) Urine Microscopic RBC (0-3) per hpf Urine Microscopic WBC (0-3) per hpf Ur Squamous Epith Cells (None-Few) per lpf Urine Bacteria (None-Few) per hpf Hyaline Casts Ur Culture Indicated? (NO) Urine Opiates Screen (Fsyoqu=365) ng/mL Ur Barbiturates Screen (Ylmdld=519) ng/mL Ur Phencyclidine Scrn (Cutoff=25) ng/mL Ur Amphetamines Screen (Ahvijp=9481) ng/mL U Benzodiazepines Scrn (Adunre=164) ng/mL Urine Cocaine Screen (Cutoff= 300) ng/mL U Marijuana (THC) Screen (Cutoff = 50) ng/mL Ethyl Alcohol (0-10) mg/dL - Radiology Data Radiology results reviewed: Yes I reviewed the patient's radiology results. - EKG Data EKG #1 EKG attestation: Yes I reviewed and interpreted this EKG. EKG results narrative: ECG - interpreted by ED physician. Rate 69 ventricular paced
[2016-09-08 15:04] LABS: Alanine Aminotransferase 19 Units/L (0-55); Albumin 3.4 g/dL (3.5-5.0); Alkaline Phosphatase 49 Units/L (38-126); Aspartate Amino Transferase 12 Units/L (5-34); BUN/Creatinine Ratio 25 (6-26); Bilirubin,Direct 0.2 mg/dL (0.0-0.5); Bilirubin,Indirect 0.3 mg/dL (0.0-1.2); Bilirubin,Total 0.5 mg/dL (0.2-1.2); Blood Urea Nitrogen 47 mg/dL (8-26); Calcium 8.4 mg/dL (8.6-10.8); Carbon Dioxide 21 mEq/L (19-29); Chloride 104 mEq/L (98-109); Globulin 3.4 g/dL (2.4-3.5); Glucose 181 mg/dL (70-99); Osmolality,Calculated 291 (280-300); Potassium 5.5 mEq/L (3.5-4.5); Sodium 132 mEq/L (136-145); Total Protein 6.8 g/dL (6.0-8.3); eGFR For African Americans 44 (> 60); eGFR For Non-African Americans 37 (> 60)
[2016-09-08 15:05] LABS: Ethanol < 10 mg/dL (0-10)
[2016-09-08 16:34] LABS: Bilirubin,Urine Negative (Negative); Blood,Urine Trace (Negative); Clarity,Urine Cloudy (Clear); Color,Urine Yellow (Yellow); Glucose,Urine (UA) Normal (Normal); Ketones,Urine Negative (Negative); Leukocyte Esterase,Urine Negative (Negative); Nitrite,Urine Negative (Negative); PH,Urine 5.5 pH Units (5.0-8.0); Protein,Urine Negative (Neg-Trace); Specific Gravity,Urine 1.014 (1.010-1.025); Urobilinogen,Urine Normal (Normal)
[2016-09-08 16:37] LABS: Bacteria,Urine None Seen per hpf (None-Few); Squamous Epithelial Cell,Urine Many per lpf (None-Few); WBC,Urine 0-3 per hpf (0-3)
[2016-09-08 16:40] LABS: Amphetamine Screen,Urine Negative ng/mL (Cutoff=1000); Barbiturate Screen,Urine Negative ng/mL (Cutoff=200); Benzodiazepines Screen,Urine Positive ng/mL (Cutoff=200); Cannabinoid Screen,Urine Negative ng/mL (Cutoff = 50); Cocaine Screen,Urine Negative ng/mL (Cutoff= 300); Opiate Screen,Urine Negative ng/mL (Cutoff=300); Phencyclidine Screen,Urine Negative ng/mL (Cutoff=25)
[2016-09-08] MEDS ORDERED: Calcium Gluconate 1,000 MG in D5% in Water 100 ML IVPB ONE (17:00)
[2016-09-08 17:33] LABS: Lipase 22 Units/L (8-78)
[2016-09-08] MEDS ORDERED: *HR* Warfarin 5 MG TABLET PO SCH (18:00)
[2016-09-08] MEDS ORDERED: Ondansetron 4 MG/2 ML VIAL IVP PRN (18:48)
[2016-09-08] MEDS ORDERED: MOM Conc 10 ML UD.LIQ PO PRN (18:48)
[2016-09-08] MEDS ORDERED: Naloxone 0.4 MG/ML INJ IVP PRN (18:48)
[2016-09-08] MEDS ORDERED: 0.9 % Sodium Chloride 1,000 ML IVC SCH (19:00)
[2016-09-08] MEDS ORDERED: *HR* Dextrose 50 % in Water (Syg) 50 ML SYRINGE IVP PRN (19:42)
[2016-09-08] MEDS ORDERED: D5% in Water 1,000 ML IV PRN (19:42)
[2016-09-08] MEDS ORDERED: Dextrose Gel 15 GM PO PRN ×2 (19:42)
[2016-09-08] MEDS ORDERED: Acetaminophen/Aspirin/Caffeine TABLET PO PRN (19:43)
[2016-09-08] MEDS ORDERED: diazePAM 10 MG TABLET PO PRN (19:43)
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
[2016-09-08] MEDS ORDERED: Naltrexone Hcl [Revia] 50 MG PO SCH (21:00)
[2016-09-08] MEDS ORDERED: Insulin LISPRO 300 UNITS/3 ML VIAL SQ SCH (21:00)
[2016-09-09 05:02] LABS: Basophils % 0.7 %; Eosinophils # 0.1 K/mcL (0.0-0.6); Eosinophils % 1.5 %; Hematocrit 36.6 % (37.5-50.1); Hemoglobin 12.1 g/dL (12.9-16.9); Lymphocytes # 1.6 K/mcL (0.6-4.6); Lymphocytes % 30.4 %; Mean Corpuscular HGB Conc 33.1 g/dL (31.6-35.5); Mean Corpuscular Hemoglobin 29.8 pg (28.0-33.3); Mean Corpuscular Volume 90.1 fL (83.0-100.0); Mean Platelet Volume 10.5 fL (9.4-12.4); Monocytes # 0.6 K/mcL (0.0-1.3); Monocytes % 10.6 %; Platelet Count 144 K/mcL (140-400); Red Blood Count 4.06 M/mcL (4.19-5.50); Segmented Neutrophils % 54.8 %
[2016-09-09 05:03] LABS: INR 2.9; Prothrombin Time 32.1 Seconds (9.4-12.1)
[2016-09-09 05:14] LABS: BUN/Creatinine Ratio 27 (6-26); Calcium 8.6 mg/dL (8.6-10.8); Carbon Dioxide 24 mEq/L (19-29); Chloride 104 mEq/L (98-109); Glucose 149 mg/dL (70-99); Osmolality,Calculated 293 (280-300); Potassium 4.5 mEq/L (3.5-4.5); Sodium 137 mEq/L (136-145); eGFR For African Americans > 60 (> 60); eGFR For Non-African Americans > 60 (> 60)
[2016-09-09 05:16] LABS: Blood Urea Nitrogen 29 mg/dL (8-26)
[2016-09-09] MEDS ORDERED: Fenofibrate 54 MG TABLET PO SCH (09:00)
[2016-09-09] MEDS ORDERED: Isosorbide MONOnitrate (24 HR) 30 MG TAB.ER.24H PO SCH (09:00)
[2016-09-09] MEDS ORDERED: *HR* Warfarin 5 MG TABLET PO SCH (09:00)
[2016-09-09] MEDS ORDERED: Aspirin Enteric Coated 81 MG Tablet PO SCH (09:00)
[2016-09-09] MEDS: Insulin LISPRO 300 UNITS/3 ML VIAL SQ SCH ×2 (09:23→12:34)
--- NOTE | 2016-09-09 11:09 | Electrocardiograph Report ---
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
[2016-09-09 15:35] VITALS: BP 107/67
[2016-09-09] MEDS ORDERED: *HR* Warfarin 2.5 MG TABLET PO SCH (18:00)
== END 2016-09-09 16:10 | disposition home or self-care (01) ==
LOC: 3BNU 13:49 → EMEROO 13:49 → 3BNU 18:58
PROVIDERS: ADMIT Registered Nurse; ATTEND Nurse Practitioner Family